=== PATIENT | male | born 1950 | race Caucasian/White ===

== ENCOUNTER 2020-04-18 05:52 | Inpatient (IN) ==
[2020-04-18] MEDS ORDERED: HEPARIN (PORCINE) 1000 UNIT/ML 10 ML (CATH LAB USE ONLY) ONE (06:16)
[2020-04-18] MEDS ORDERED: fentaNYL citrate 100 MCG/2 ML VIAL ONE ×3 (06:16→07:34)
[2020-04-18] MEDS ORDERED: NITROGLYCERIN/D5W 100MCG/ML 20ML SYR ONE (06:16)
[2020-04-18] MEDS ORDERED: MIDAZOLAM HCL 1 MG/ML 2ML VIAL ONE ×2 (06:16→07:30)
[2020-04-18] MEDS ORDERED: niCARdipine HCL INJ 2.5 MG/ML 10 ML AMP ONE (06:16)
[2020-04-18 06:27] LABS: Basophils # (auto) 0.04 K/uL (0-0.2); Basophils % (auto) 0.5 %; Eosinophils # (auto) 0.12 K/uL (0-0.5); Eosinophils % (auto) 1.5 %; Hematocrit (blood only) 35.7 % (42-52); Hemoglobin 12.2 g/dL (14.0-18.0); Immature Granulocytes # (auto) 0.02 K/uL (0.00-0.02); Immature Granulocytes % (auto) 0.2 %; Lymphocytes # (auto) 0.82 K/uL (1.2-3.4); Lymphocytes % (auto) 10.2 %; Mean Corpuscular Hemoglobin 32.5 pg (25-34); Mean Corpuscular Hgb Conc 34.2 g/dL (32-36); Mean Corpuscular Volume 95.2 fL (80-100); Mean Platelet Volume 9.5 fL (7.4-10.4); Monocytes # (auto) 0.68 K/uL (0.11-0.59); Monocytes % (auto) 8.5 %; Neutrophils # (auto) 6.36 K/uL (1.4-6.5); Neutrophils % (auto) 79.1 %; Platelet Count 282 K/uL (130-400); RDW Coefficient of Variation 12.2 % (11.5-14.5); RDW Standard Deviation 42.4 fL (36.4-46.3); Red Blood Count 3.75 M/uL (4.7-6.1); White Blood Count 8.04 K/uL (4.8-10.8)
[2020-04-18 06:30] LABS: iSTAT Creatinine 1.3 mg/dl (0.6-1.3); iSTAT Hemoglobin 12.2 g/dl (14.0-18.0); iSTAT Ionized Calcium 1.19 mmol/l (1.12-1.32); iSTAT Potassium 4.1 mmol/L (3.3-5.0)
[2020-04-18 06:44] LABS: Albumin Level 3.5 gm/dl (3.4-5.0); BUN Creatinine Ratio 13.6 (10-20); Calcium 9.3 mg/dl (8.5-10.1); Creatinine Clr Calc Pharmacy 55.4 ml/min; Est GFR (African American) 58.2; Est GFR (Non-African American) 50.2; Potassium 4.1 mmol/L (3.5-5.1)
[2020-04-18 06:45] LABS: Partial Thromboplastin Ratio 0.9; Partial Thromboplastin Time 25.5 Seconds (21.0-31.0); Prothrombin Time 10.9 Seconds (9.0-12.0)
[2020-04-18 06:54] LABS: Bilirubin,Total 0.5 mg/dl (0.2-1); Globulin 3.5 gm/dl (2.5-4.0); Troponin I 0.203 ng/ml (0-0.045)
--- NOTE | 2020-04-18 07:17 | XRay Report ---
XR chest 1V portable CLINICAL HISTORY: Atypical chest pain COMPARISON STUDY: 04/04/2020 FINDINGS: The heart is mildly enlarged. There are postsurgical changes of a midline sternotomy. There are left basilar airspace opacities. There is blunting of the left lateral costophrenic angle. Small left pleural effusion is suspected. There are minimally increased right basilar markings.[ IMPRESSION: 1. Suspected small left pleural effusion 2. Left basilar opacities, atelectasis versus pneumonia. Clinical and radiographic follow-up is recom mended ACT 112: Negative or not required by law. Electronically signed by: Jax Montoya M.D. 04/18/2020 7:15 AM
[2020-04-18] MEDS ORDERED: EPTIFIBATIDE 2 MG/ML 10 ML VIAL (CATH LAB USE ONLY) IV ONE (07:19)
--- NOTE | 2020-04-18 07:20 | Emergency Department Note ---
Impression & Plan ST elevation (STEMI) myocardial infarction ED Provider Note NAME: RAYMOND GODFREY AGE: 70 SEX: M ARRIVES VIA: Ambulance INFORMANT: Patient, EMS, the patient's ED PROVIDER(S): Claritza Aguila DO CHIEF COMPLAINT: Right-sided chest pain PLAN: Disposition: The patient went to the Pre Press Operator with Dr. Ledesma Condition: Critical MEDICAL DECISION MAKING: This is a 70-year-old male patient who is 1 week status post quadruple bypass who presents to the emergency department with sudden onset of right-sided chest pain. Prehospital EKG shows ST segment elevation in the anterior leads consistent with an acute LA. A heart alert was called. The patient was given sublingual nitro prehospital along with aspirin and treated with IV fentanyl for his pain. The patient remained hemodynamically stable and went to the cardiac Pre Press Operator with Dr. Ledesma. I kept the patient's abreast of the situation. This patient had quadruple bypass 1 week ago in [place] and had a normal postoperative course and was doing very well until 230 this morning when he awoke suddenly with right-sided chest pain that radiated into his right shoulder. Patient denies any shortness of breath but stated that the pain seemed to go into his back as well. Triage Nursing notes reviewed and agree them. Additional history obtained from EMS and the patient's Prior medical records reviewed Vital Signs: reviewed and remarkable for no significant abnormalities Differential diagnosis: STEMI; coronary vasospasm; Ciarra syndrome; aortic dissection; coronary artery dissection; PE ER treatment provided: IV fentanyl Diagnostics interpreted by me: ECG: Normal sinus rhythm at a rate of [address] segment elevation in inferior and lateral leads with some reciprocal changes in the anterior leads concerning for an acute STEMI Cardiac Monitoring: Normal sinus rhythm of 84 EKG: Junctional rhythm at a rate of [address] segment elevation in the lateral leads. There are now significant ST segment depressions in the leads V2 and V3 which are concerning for worsening ischemia. Laboratory studies: See below Imaging studies: Chest x-ray: Small left-sided pleural effusion with questionable atelectasis at the left lung base. Consultation(s): Dr. Ledesma HPI: 70/M arrives for evaluation of right-sided chest pain. The patient awoke from sleep at 2:30 AM with moderate right-sided chest pain that radiated to his right shoulder and into his back. The patient explains that he could just not get comfortable. Patient has been having some discomfort in the mid sternum of his chest from where he underwent quadruple bypass surgery 1 week ago in [place]. That pain had slowly been improving over the past 6-7 days. This was very different as he describes it. EMS gave the patient sublingual nitroglycerin, aspirin, and IV fentanyl with minimal relief of the discomfort ROS: See above HPI for pertinent positives & negatives. A total of 10 systems reviewed and were otherwise negative. PAST MEDICAL HISTORY:Coronary artery disease PAST SURGICAL HISTORY:Quadruple bypass surgery at [place] 1 week ago SOCIAL HISTORY:Patient lives with his ; he denies tobacco abuse. HOME MEDICATIONS:See list ALLERGIES:See list VITALS:See Below PHYSICAL EXAMINATION: HEENT: Head - normocephalic and atraumatic Pupils are equal, round, and reactive to light. Extraocular eye muscles are intact, and sclera are anicteric. Nose - moist nasal mucosa without discharge. Mouth - moist buccal mucosa. Oropharynx is nonerythematous and there is no tonsillar exudate or edema noted. Neck: Supple; no JVD or cervical lymphadenopathy noted Chest: Sternotomy incision appears to be well-healing. Heart: Regular rate and rhythm. There is a normal S1 and S2 with no murmurs, clicks, or gallops appreciated. Lungs: Clear to auscultation bilaterally with no wheezes, rales, or rhonchi. Abdomen: Soft, completely nontender, nondistended, with good bowel sounds. There are no palpable pulsatile masses or hepatosplenomegaly. There is no guarding, rigidity, or rebound noted. Extremities: No evidence of cyanosis, clubbing, or edema. There are easily palpable peripheral pulses. Skin: warm and dry with good turgor and no rashes. ED COURSE: Times/Reassessments: 0600: The patient was evaluated in room C9. I reviewed his previous electronic medical records. A complete history and physical was performed. A twelve-lead EKG was obtained as described above. I immediately discussed the case with Dr. Ledesma and a heart alert was called. An order was placed for continuous cardiac monitoring. The patient was in a normal sinus rhythm at a rate of 82. A second IV lock was initiated and labs were drawn as above. The patient was given 50 mcg of IV fentanyl for his pain. A portable chest x- ray was performed. The Pre Press Operator team assembled. A second dose of IV fentanyl was given for recurrent chest discomfort. A repeat EKG was obtained and showed worsening ischemic changes. I have personally spent greater than 55 minutes of critical care time in the direct management of this patient. This includes bedside care, interpretation of diagnostic studies, and testing, discussion with consultants, patient, and family members, and other required patient management activities. This 55 minutes is in excess of all separately billable procedures. Claritza Aguila, Past Med/Surg History Medical History Chest pain Substernal chest pain Family History Grandfather (Paternal) , age 58 with Parkinsons No problems noted. Grandmother (Paternal) , age 84 old age No problems noted. Grandfather (Maternal) , in his eighties No problems noted. Grandmother (Maternal) , with stroke age 65 No problems noted. Father , age 68 bacterial and viral infection No problems noted. Mother , age 91 with a stroke No problems noted. Sister No problems noted. Sister No problems noted. Son Age: 46 No problems noted. Son Age: 44 No problems noted. Son Age: 29 No problems noted. Social History Smoking Status: Former smoker Hx Alcohol Use: Yes Hx Substance Use: No Preferred Language: Iraqi Hearing Ability: Hard of Hearing Fish Bin Tender Required: No Beliefs That Will Affect Care: None marital status: Current Living Situation: Spouse current occupational status: retired Feels Safe at Home: Yes Do you think of yourself as: straight/heterosexual Sexual Activity: has been sexually active, but not for at least 12 months Allergies Allergies Allergy/AdvReac Type Severity Reaction Status Date / Time cat dander Allergy Mild hives Verified 04/18/20 06:07 Penicillins Allergy Unknown . Verified 04/18/20 06:07 Home Meds Home Medications Medication Instructions Recorded Confirmed tamsulosin 0.4 mg capsule 0.8 mg PO HS cap 03/16/20 04/18/20 atorvastatin 40 mg PO HS 04/18/20 04/18/20 furosemide 40 mg PO DAILY 04/18/20 04/18/20 oxycodone 5 mg PO Q4 PRN 04/18/20 04/18/20 potassium chloride 20 meq PO DAILY 04/18/20 04/18/20 tramadol 50 mg PO Q6 PRN 04/18/20 04/18/20 Previous Rx's Medication Instructions Recorded aspirin 81 mg PO QAM #30 tab 04/04/20 metoprolol tartrate 25 mg PO BID #60 tab 04/04/20 nitroglycerin [Nitrostat] 0.4 mg SUBLINGUAL PRN #25 tab 04/04/20 Results & Data (ED) Vital Signs Vital Signs - 24 hr 04/18/20 06:00 04/18/20 06:01 04/18/20 06:09 Temperature 36.8 C Temperature Source Oral Pulse Rate 93 H 96 H 88 Pulse Rate from SpO2 Sensor 90 94 H Respiratory Rate 20 15 18 Respiratory Effort / Characteristics Non-Labored Spontaneous Respiratory Depth Normal Blood Pressure 145/83 H 150/68 H Blood Pressure Mean 110 95 Pulse Oximetry 91 92 93 Oxygen Delivery Method Room Air Room Air Room Air Oxygen Flow Rate Sepsis New/Unexplained Change in Mental Status N/A Sepsis Action Taken by Nursing No Action Required 04/18/20 06:13 04/18/20 06:21 04/18/20 06:22 Temperature Temperature Source Pulse Rate 92 H 86 85 Pulse Rate from SpO2 Sensor 85 85 Respiratory Rate 20 12 22 Respiratory Effort / Characteristics Respiratory Depth Blood Pressure 124/68 135/75 Blood Pressure Mean 82 103 Pulse Oximetry 96 96 98 Oxygen Delivery Method Nasal Cannula Nasal Cannula Nasal Cannula Oxygen Flow Rate 2 2 3 Sepsis New/Unexplained Change in Mental Status Sepsis Action Taken by Nursing 04/18/20 06:25 04/18/20 06:26 04/18/20 06:30 Temperature Temperature Source Pulse Rate 88 83 88 Pulse Rate from SpO2 Sensor 87 84 88 Respiratory Rate 18 13 19 Respiratory Effort / Characteristics Respiratory Depth Blood Pressure 115/49 L 132/61 Blood Pressure Mean 69 83 Pulse Oximetry 96 98 97 Oxygen Delivery Method Nasal Cannula Nasal Cannula Nasal Cannula Oxygen Flow Rate 3 3 3 Sepsis New/Unexplained Change in Mental Status Sepsis Action Taken by Nursing 04/18/20 06:31 04/18/20 06:35 04/18/20 06:40 Temperature Temperature Source Pulse Rate 83 81 82 Pulse Rate from SpO2 Sensor 81 Respiratory Rate 15 15 16 Respiratory Effort / Characteristics Respiratory Depth Blood Pressure Blood Pressure Mean Pulse Oximetry 97 97 98 Oxygen Delivery Method Nasal Cannula Nasal Cannula Nasal Cannula Oxygen Flow Rate 3 Sepsis New/Unexplained Change in Mental Status Sepsis Action Taken by Nursing 04/18/20 06:41 04/18/20 06:43 04/18/20 06:44 Temperature Temperature Source Pulse Rate 84 81 84 Pulse Rate from SpO2 Sensor 82 84 Respiratory Rate 17 22 17 Respiratory Effort / Characteristics Respiratory Depth Blood Pressure 124/63 142/71 H Blood Pressure Mean 82 88 Pulse Oximetry 97 97 98 Oxygen Delivery Method Nasal Cannula Nasal Cannula Nasal Cannula Oxygen Flow Rate 3 3 3 Sepsis New/Unexplained Change in Mental Status Sepsis Action Taken by Nursing 04/18/20 06:45 04/18/20 06:46 Temperature Temperature Source Pulse Rate 86 82 Pulse Rate from SpO2 Sensor 85 82 Respiratory Rate 18 15 Respiratory Effort / Characteristics Respiratory Depth Blood Pressure 126/60 Blood Pressure Mean 73 Pulse Oximetry 97 98 Oxygen Delivery Method Nasal Cannula Nasal Cannula Oxygen Flow Rate 3 3 Sepsis New/Unexplained Change in Mental Status Sepsis Action Taken by Nursing Laboratory Data Result diagrams: 04/18/20 06:10 04/18/20 06:10 Lab Results 04/18/20 04/18/20 04/18/20 Range/Units 06:10 06:10 06:10 WBC 8.04 (4.8-10.8) K/uL RBC 3.75 L (4.7-6.1) M/uL Hgb 12.2 L (14.0-18.0) g/dL POC Hgb (14.0-18.0) g/dl Hct 35.7 L (42-52) % POC Hct (42-52) % MCV 95.2 (80-100) fL MCH 32.5 (25-34) pg MCHC 34.2 (32-36) g/dL RDW Std Deviation 42.4 (36.4-46.3) fL RDW Coeff of Cathie 12.2 (11.5-14.5) % Plt Count 282 (130-400) K/uL MPV 9.5 (7.4-10.4) fL Immature Gran % (Auto) 0.2 % Neut % (Auto) 79.1 % Lymph % (Auto) 10.2 % Dyer % (Auto) 8.5 % Eos % (Auto) 1.5 % Baso % (Auto) 0.5 % Neut # (Auto) 6.36 (1.4-6.5) K/uL Lymph # (Auto) 0.82 L (1.2-3.4) K/uL Dyer # (Auto) 0.68 H (0.11-0.59) K/uL Eos # (Auto) 0.12 (0-0.5) K/uL Baso # (Auto) 0.04 (0-0.2) K/uL Immature Gran # (Auto) 0.02 (0.00-0.02) K/uL PT 10.9 (9.0-12.0) Seconds INR 1.0 (0.9-1.1) APTT 25.5 (21.0-31.0) Seconds PTT Ratio 0.9 POC Sodium (135-144) mmol/L Sodium 138 (136-145) mmol/L POC Potassium (3.3-5.0) mmol/L Potassium 4.1 (3.5-5.1) mmol/L POC Chloride (101-112) mmol/L Chloride 105 (98-107) mmol/L Carbon Dioxide 26 (21-32) mmol/L POC Total CO2 (24-31) mmol/L Anion Gap 7.0 (3-11) POC Anion Gap (16-25) mmol/L POC BUN (7-18) mg/dl BUN 19 H (7-18) mg/dl Creatinine 1.40 (0.6-1.4) mg/dl POC Creatinine (0.6-1.3) mg/dl Est Cr Clr Drug Dosing 55.4 ml/min Est GFR ( Amer) 58.2 Est GFR (Non-Af Amer) 50.2 BUN/Creatinine Ratio 13.6 (10-20) Glucose 148 H (70-99) mg/dl POC Glucose (other) (70-99) mg/dl Calcium 9.3 (8.5-10.1) mg/dl POC Ioniz Calcium Zafar (1.12-1.32) mmol/l Total Bilirubin 0.5 (0.2-1) mg/dl AST 23 (15-37) U/L ALT 37 (12-78) U/L Alkaline Phosphatase 61 (45-117) U/L Troponin I 0.203 H* (0-0.045) ng/ml Total Protein 7.0 (6.4-8.2) gm/dl Albumin 3.5 (3.4-5.0) gm/dl Globulin 3.5 (2.5-4.0) gm/dl Albumin/Globulin Ratio 1.0 (0.9-2) Lipase 98 (73-393) U/L COVID-19 Eval Order SARS-CoV-2, RNA, NAAT (NEGATIVE) 04/18/20 04/18/20 04/18/20 Range/Units 06:10 06:10 06:17 WBC (4.8-10.8) K/uL RBC (4.7-6.1) M/uL Hgb (14.0-18.0) g/dL POC Hgb 12.2 L (14.0-18.0) g/dl Hct (42-52) % POC Hct 36 L (42-52) % MCV (80-100) fL MCH (25-34) pg MCHC (32-36) g/dL RDW Std Deviation (36.4-46.3) fL RDW Coeff of Cathie (11.5-14.5) % Plt Count (130-400) K/uL MPV (7.4-10.4) fL Immature Gran % (Auto) % Neut % (Auto) % Lymph % (Auto) % Dyer % (Auto) % Eos % (Auto) % Baso % (Auto) % Neut # (Auto) (1.4-6.5) K/uL Lymph # (Auto) (1.2-3.4) K/uL Dyer # (Auto) (0.11-0.59) K/uL Eos # (Auto) (0-0.5) K/uL Baso # (Auto) (0-0.2) K/uL Immature Gran # (Auto) (0.00-0.02) K/uL PT (9.0-12.0) Seconds INR (0.9-1.1) APTT (21.0-31.0) Seconds PTT Ratio POC Sodium 135 (135-144) mmol/L Sodium (136-145) mmol/L POC Potassium 4.1 (3.3-5.0) mmol/L Potassium (3.5-5.1) mmol/L POC Chloride 102 (101-112) mmol/L Chloride (98-107) mmol/L Carbon Dioxide (21-32) mmol/L POC Total CO2 24 (24-31) mmol/L Anion Gap (3-11) POC Anion Gap 14.0 L (16-25) mmol/L POC BUN 19 H (7-18) mg/dl BUN (7-18) mg/dl Creatinine (0.6-1.4) mg/dl POC Creatinine 1.3 (0.6-1.3) mg/dl Est Cr Clr Drug Dosing ml/min Est GFR ( Amer) Est GFR (Non-Af Amer) BUN/Creatinine Ratio (10-20) Glucose (70-99) mg/dl POC Glucose (other) 155 H (70-99) mg/dl Calcium (8.5-10.1) mg/dl POC Ioniz Calcium Zafar 1.19 (1.12-1.32) mmol/l Total Bilirubin (0.2-1) mg/dl AST (15-37) U/L ALT (12-78) U/L Alkaline Phosphatase (45-117) U/L Troponin I (0-0.045) ng/ml Total Protein (6.4-8.2) gm/dl Albumin (3.4-5.0) gm/dl Globulin (2.5-4.0) gm/dl Albumin/Globulin Ratio (0.9-2) Lipase (73-393) U/L COVID-19 Eval Order Covid19 [email or web address] SARS-CoV-2, RNA, NAAT NEGATIVE (NEGATIVE) Administered Medications Discontinued Medications Fentanyl Citrate (Fentanyl Citrate 100 Mcg/2 Ml Vial) Confirm Administered Dose 100 mcg .ROUTE .STK-MED ONE Stop: 04/18/20 06:17 Last Increment: 04/18/20 06:34 Dose: 50 mcg Documented by: [id number] Increment: 04/18/20 06:24 Dose: 50 mcg Documented by: [id number] Discharge Plan Visit Data Chief Complaint: Chest Pain Stated Complaint: CHEST PAIN ED Provider: Claritza Aguila Discharge Problem: ST elevation (STEMI) myocardial infarction Discharge Instructions Interventions: ED Discharge Assessment Last Done: 04/18/20 06:51 Discharge Problem: ST elevation (STEMI) myocardial infarction Qualifiers: Involved coronary artery: unspecified coronary artery Qualified Code(s): I21.3 - ST elevation (STEMI) myocardial infarction of unspecified site
[2020-04-18] MEDS ORDERED: EPTIFIBATIDE 0.75 MG/ML 75MG VIAL (CATH LAB USE ONLY) ONE ×2 (07:24→07:25)
[2020-04-18] MEDS ORDERED: CLOPIDOGREL BISULFATE 300 MG TAB ONE (08:12)
[2020-04-18] MEDS ORDERED: ONDANSETRON INJ 2 MG/ML 2 ML VIAL IV PRN (08:25)
[2020-04-18] MEDS ORDERED: NITROGLYCERIN SL 0.4 MG/TAB TAB SL PRN (08:25)
[2020-04-18] MEDS ORDERED: ICU PROTOCOL FOR HYPERGLYCEMIA PRN (08:25)
[2020-04-18] MEDS ORDERED: ACETAMINOPHEN 325 MG TAB PO PRN (08:25)
[2020-04-18] MEDS ORDERED: EPTIFIBATIDE BOLUS/DRIP IV STA (08:25)
[2020-04-18] MEDS ORDERED: SODIUM CHLORIDE 0.9% 1000ML 1,000 ML IV SCH (08:30)
[2020-04-18] MEDS ORDERED: EPTIFIBATIDE 75 MG/100 ML VIAL IV SCH (08:30)
--- NOTE | 2020-04-18 09:49 | History & Physical Report ---
Date of Service April 18, 2020 Assessment & Plan (1) ST elevation (STEMI) myocardial infarction: Cardiac cath revealed thrombus in the SVG at the diagonal - successfully cleared and XOCHITL placed by interventional cardiology. Pt reports currently feeling significantly improved. - Further management per cardiology team. (2) Type 2 diabetes mellitus: Pt reports diet-controlled - not on oral medications or insulin although was on SSI coverage post-operatively last week. 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 Outpatient meds continued except for furosemide and potassium - will reassess fluid status in AM - Follow labs Pt seen and reviewed with attending physician, Dr. Acharya. Plan of care discussed and as outlined above. Lore Umana PA-C Admission and Anticipated Discharge Date Admission Date: April 18, 2020 History of Present Illness Chief Complaint: Chest pain Primary Care Provider: Melvin Pickard MD This is a 70 y/o male with a PMH of CAD s/p CABG x 4 (04/11/20), aortic stenosis s/p AVR (04/11/20), DM2, HTN, dyslipidemia, BPH, bilateral carotid artery stenosis, and prostate cancer who presented to the ED early this morning with chest pain, was found to have a STEMI, and sent urgent to cardiac cath where he was found to have stenosis of the graft at the junction of the diagonal that was subsequently cleared and stented with a XOCHITL. Pt reports that he was doing well at home since discharge and felt like he was gradually improving a little each day. He noted some chest pain related to incision, especially with coughing or specific movements, but it was always substernal in location. However, this morning around 3:30 am he woke up with significant right-sided chest pain that is different from what he had been experiencing. When the pain did not quickly resolve, he became concerned and called EMS. In transport, he was noted to have ST segment elevation in the anterior leads with subsequent EKG in the ED showing potential progression of ischemia. Heart alert was called and patient was sent to cardiac cath as discussed. Currently, pt is seen in the ICU. He reports that the previous CP that brought him to the hospital has resolved, and the substernal CP from recent surgery is minimal. He denies pain at the groin site. His main complaint at present is shortness of breath related to lying flat after cath. Otherwise he is feeling well. Allergies Allergy/AdvReac Type Severity Reaction Status Date / Time cat dander Allergy Mild hives Verified 04/18/20 06:07 Penicillins Allergy Unknown . Verified 04/18/20 06:07 Home Medications Medication Instructions Recorded Confirmed Type tamsulosin 0.4 mg capsule 0.8 mg PO HS cap 03/16/20 04/18/20 History aspirin 81 mg PO QAM #30 tab 04/04/20 04/18/20 Rx metoprolol tartrate 25 mg PO BID #60 tab 04/04/20 04/18/20 Rx nitroglycerin [Nitrostat] 0.4 mg SUBLINGUAL PRN #25 tab 04/04/20 04/18/20 Rx atorvastatin 40 mg PO HS 04/18/20 04/18/20 History furosemide 40 mg PO DAILY 04/18/20 04/18/20 History oxycodone 5 mg PO Q4 PRN 04/18/20 04/18/20 History potassium chloride 20 meq PO DAILY 04/18/20 04/18/20 History tramadol 50 mg PO Q6 PRN 04/18/20 04/18/20 History Past Med/Surg History Medical History Aortic stenosis, moderate Bilateral carotid artery stenosis BPH with obstruction/lower urinary tract symptoms CAD (coronary artery disease) Chest pain Dyslipidemia Hereditary hemochromatosis History of nonmelanoma skin cancer History of patellar fracture HTN (hypertension) Substernal chest pain Type 2 diabetes mellitus Surgical History History of Mohs micrographic surgery for skin cancer BCC - 2017 History of vasectomy S/P AVR (aortic valve replacement) S/P CABG x 4 Family History Grandfather (Paternal) , age 58 with Parkinsons No problems noted. Grandmother (Paternal) , age 84 old age No problems noted. Grandfather (Maternal) , in his eighties No problems noted. Grandmother (Maternal) , with stroke age 65 No problems noted. Father , age 68 bacterial and viral infection No problems noted. Mother , age 91 with a stroke No problems noted. Sister No problems noted. Sister No problems noted. Son Age: 46 No problems noted. Son Age: 44 No problems noted. Son Age: 29 No problems noted. Social History Smoking Status: Current some day smoker Second Hand Exposure: No; Do You Dip or Chew Tobacco: No; Tobacco Cessation Education Requested by Patient: No Hx Alcohol Use: Yes Alcohol type: beer Hx Substance Use: No Preferred Language: Danish Communication Ability: Effective Hearing Ability: Hard of Hearing Software Tools Build Engineer Required: No Beliefs That Will Affect Care: None marital status: Current Living Situation: Spouse current occupational status: retired Other Information That Helps Us Care for You: No Feels Safe at Home: Yes Safety Concerns: Feels Safe At This Time Do you think of yourself as: straight/heterosexual Sexual Activity: has been sexually active, but not for at least 12 months Assistive Devices: Glasses Review of Systems Review of Systems: All systems reviewed & are unremarkable except as noted in HPI & below Constitutional: no fever, no chills and no sweats Eyes: no diplopia Ear, Nose, Mouth, Throat: no nasal congestion, no nasal discharge and no sore throat Respiratory: as per Subjective / HPI, + cough (mild since surgery - not worsening) and + dyspnea; no hemoptysis and no wheezing Cardiovascular: as per Subjective / HPI and + edema (mild LLE edema since vein harvest for CABG - also improving); no palpitations, no lightheadedness and no syncope Gastrointestinal: no abdominal pain, no nausea, no vomiting and no diarrhea/loose stools Genitourinary: + difficulty urinating (chronic issue - controlled with Flomax); no dysuria and no hematuria Musculoskeletal: no back pain, no neck pain and no muscle weakness Integumentary: no rash Neurologic: no localized weakness, no paresthesia, no seizure-like activity and no headache(s) Physical Exam Constitutional: WD/WN, vitals as above Eyes: + anicteric sclerae Neck: trachea midline Respiratory: no respiratory distress and no labored breathing Auscultation: lungs clear to auscultation bilaterally; no rales, no rhonchi and no wheezes Cardiovascular: Rate/Rhythm: regular rate and regular rhythm Vessels: dorsalis pedis pulses present Extremities: no pedal edema Gastrointestinal (Abdomen): Inspection/Auscultation: normal bowel sounds; abdomen not distended Percussion/Palpation: abdomen soft; abdomen nontender Musculoskeletal: Head/Neck/Chest: normocephalic and head atraumatic Skin: no rashes, warm and dry sternal incision healing well without erythema, warmth or drainage. Surrounding ecchymosis fading. Neurologic: moves all extremities; not confused Speech / Cognition: normal speech Psychiatric: A+Ox3, euthymic affect Results & Data Results & Data ([facility]) Vital Signs (Past 12 Hours) Vital Signs Temp Pulse Pulse Resp BP BP Pulse Ox 04/18/20 09:04 76 18 140/69 94 04/18/20 08:50 66 18 146/66 H 95 04/18/20 08:35 72 18 140/58 L 93 04/18/20 08:20 85 18 113/91 95 04/18/20 06:46 82 15 98 04/18/20 06:45 86 18 126/60 97 04/18/20 06:44 84 17 98 04/18/20 06:43 81 22 142/71 H 97 04/18/20 06:41 84 17 124/63 97 04/18/20 06:40 82 16 98 04/18/20 06:35 81 15 97 04/18/20 06:31 83 15 97 04/18/20 06:30 88 19 132/61 97 04/18/20 06:26 83 13 98 04/18/20 06:25 88 18 115/49 L 96 04/18/20 06:22 85 22 98 04/18/20 06:21 86 12 135/75 96 04/18/20 06:13 92 H 20 124/68 96 04/18/20 06:09 36.8 C 88 18 150/68 H 93 04/18/20 06:01 96 H 15 92 04/18/20 06:00 93 H 20 145/83 H 91 Laboratory Results Laboratory Results - last 24 hr 04/18/20 04/18/20 04/18/20 06:10 06:10 06:10 WBC 8.04 RBC 3.75 L Hgb 12.2 L POC Hgb Hct 35.7 L POC Hct MCV 95.2 MCH 32.5 MCHC 34.2 RDW Std Deviation 42.4 RDW Coeff of Cathie 12.2 Plt Count 282 MPV 9.5 Immature Gran % (Auto) 0.2 Neut % (Auto) 79.1 Lymph % (Auto) 10.2 Wilkinson % (Auto) 8.5 Eos % (Auto) 1.5 Baso % (Auto) 0.5 Neut # (Auto) 6.36 Lymph # (Auto) 0.82 L Wilkinson # (Auto) 0.68 H Eos # (Auto) 0.12 Baso # (Auto) 0.04 Immature Gran # (Auto) 0.02 PT 10.9 INR 1.0 APTT 25.5 PTT Ratio 0.9 Activ Coag Time Kaolin POC Sodium Sodium 138 POC Potassium Potassium 4.1 POC Chloride Chloride 105 Carbon Dioxide 26 POC Total CO2 Anion Gap 7.0 POC Anion Gap POC BUN BUN 19 H Creatinine 1.40 POC Creatinine Est Cr Clr Drug Dosing 55.4 Est GFR ( Amer) 58.2 Est GFR (Non-Af Amer) 50.2 BUN/Creatinine Ratio 13.6 Glucose 148 H POC Glucose (other) Calcium 9.3 POC Ioniz Calcium Zafar Total Bilirubin 0.5 AST 23 ALT 37 Alkaline Phosphatase 61 Troponin I 0.203 H* Total Protein 7.0 Albumin 3.5 Globulin 3.5 Albumin/Globulin Ratio 1.0 Lipase 98 Nasal Screen MRSA (PCR) COVID-19 Eval Order SARS-CoV-2, RNA, NAAT 04/18/20 04/18/20 04/18/20 06:10 06:10 06:17 WBC RBC Hgb POC Hgb 12.2 L Hct POC Hct 36 L MCV MCH MCHC RDW Std Deviation RDW Coeff of Cathie Plt Count MPV Immature Gran % (Auto) Neut % (Auto) Lymph % (Auto) Wilkinson % (Auto) Eos % (Auto) Baso % (Auto) Neut # (Auto) Lymph # (Auto) Wilkinson # (Auto) Eos # (Auto) Baso # (Auto) Immature Gran # (Auto) PT INR APTT PTT Ratio Activ Coag Time Kaolin POC Sodium 135 Sodium POC Potassium 4.1 Potassium POC Chloride 102 Chloride Carbon Dioxide POC Total CO2 24 Anion Gap POC Anion Gap 14.0 L POC BUN 19 H BUN Creatinine POC Creatinine 1.3 Est Cr Clr Drug Dosing Est GFR ( Amer) Est GFR (Non-Af Amer) BUN/Creatinine Ratio Glucose POC Glucose (other) 155 H Calcium POC Ioniz Calcium Zafar 1.19 Total Bilirubin AST ALT Alkaline Phosphatase Troponin I Total Protein Albumin Globulin Albumin/Globulin Ratio Lipase Nasal Screen MRSA (PCR) COVID-19 Eval Order Covid19 [facility] SARS-CoV-2, RNA, NAAT NEGATIVE 04/18/20 04/18/20 07:53 09:20 WBC RBC Hgb POC Hgb Hct POC Hct MCV MCH MCHC RDW Std Deviation RDW Coeff of Cathie Plt Count MPV Immature Gran % (Auto) Neut % (Auto) Lymph % (Auto) Wilkinson % (Auto) Eos % (Auto) Baso % (Auto) Neut # (Auto) Lymph # (Auto) Wilkinson # (Auto) Eos # (Auto) Baso # (Auto) Immature Gran # (Auto) PT INR APTT PTT Ratio Activ Coag Time Kaolin 213 H POC Sodium Sodium POC Potassium Potassium POC Chloride Chloride Carbon Dioxide POC Total CO2 Anion Gap POC Anion Gap POC BUN BUN Creatinine POC Creatinine Est Cr Clr Drug Dosing Est GFR ( Amer) Est GFR (Non-Af Amer) BUN/Creatinine Ratio Glucose POC Glucose (other) Calcium POC Ioniz Calcium Zafar Total Bilirubin AST ALT Alkaline Phosphatase Troponin I Total Protein Albumin Globulin Albumin/Globulin Ratio Lipase Nasal Screen MRSA (PCR) Pending COVID-19 Eval Order SARS-CoV-2, RNA, NAAT Diagnostic Findings Chest X-ray 04/18/20 - IMPRESSION: 1. Suspected small left pleural effusion. 2. Left basilar opacities, atelectasis versus pneumonia. Clinical and radiographic follow-up is recommended Medications Administered Aspirin (Aspirin 81 Mg Ectab) 81 mg PO [facility] Stop: 05/18/20 09:59 Last Admin: 04/18/20 10:28 Dose: 81 mg Documented by: [id number] Atorvastatin Calcium (Atorvastatin 40 Mg Tab) 40 mg PO [facility] Stop: 05/18/20 08:59 Last Admin: 04/18/20 10:28 Dose: 40 mg Documented by: [id number] Clopidogrel Bisulfate (Clopidogrel Bisulfate 75 Mg Tab) 75 mg PO [facility] Stop: 05/18/20 09:59 Last Admin: 04/18/20 10:28 Dose: 75 mg Documented by: [id number] Sodium Chloride (Nss 1000ml) 750 mls @ 100 mls/hr IV .Q7H30M [facility] Stop: 04/18/20 15:59 Last Admin: 04/18/20 09:39 Dose: 100 mls/hr Documented by: [id number] Eptifibatide (Integrilin) 75 mg in 100 mls @ 15.936 mls/hr IV .Q6H17M [facility]; Protocol Stop: 04/18/20 13:00 Last Admin: 04/18/20 09:39 Dose: 2 mcg/kg/min, 15.9 mls/hr Documented by: [id number] Cosigned by: [id number] Metoprolol Tartrate (Metoprolol Tartrate 25 Mg Tab) 25 mg PO BID [facility] Stop: 05/18/20 09:59 Last Admin: 04/18/20 10:28 Dose: 25 mg Documented by: [id number] Discontinued Medications Clopidogrel Bisulfate (Clopidogrel Bisulfate 300 Mg Tab) Confirm Administered Dose 600 mg .ROUTE .STK-MED ONE Stop: 04/18/20 08:13 Last Admin: 04/18/20 08:26 Dose: 600 mg Documented by: [id number] Eptifibatide (Eptifibatide 2 Mg/Ml 10 Ml Vial (Pig Sticker Use Only)) Confirm Administered Dose 40 mg IV .STK-MED ONE Stop: 04/18/20 07:20 Last Admin: 04/18/20 07:59 Dose: 18 ml Documented by: [id number] Eptifibatide (Eptifibatide 0.75 Mg/Ml 75mg Vial (Pig Sticker Use Only)) Confirm Administered Dose 75 mg .ROUTE .STK-MED ONE Stop: 04/18/20 07:25 Last Admin: 04/18/20 07:59 Dose: 75 mg Documented by: [id number] Eptifibatide (Eptifibatide 0.75 Mg/Ml 75mg Vial (Pig Sticker Use Only)) Confirm Administered Dose 75 mg .ROUTE .STK-MED ONE Stop: 04/18/20 07:26 Last Admin: 04/18/20 08:00 Dose: Not Given Documented by: [id number] Fentanyl Citrate (Fentanyl Citrate 100 Mcg/2 Ml Vial) Confirm Administered Dose 100 mcg .ROUTE .STK-MED ONE Stop: 04/18/20 06:17 Last Admin: 04/18/20 08:00 Dose: 100 mcg Documented by: [id number] Fentanyl Citrate (Fentanyl Citrate 100 Mcg/2 Ml Vial) Confirm Administered Dose 100 mcg .ROUTE .STK-MED ONE Stop: 04/18/20 06:17 Last Increment: 04/18/20 06:34 Dose: 50 mcg Documented by: [id number] Increment: 04/18/20 06:24 Dose: 50 mcg Documented by: [id number] Fentanyl Citrate (Fentanyl Citrate 100 Mcg/2 Ml Vial) Confirm Administered Dose 100 mcg .ROUTE .[facility]-MED ONE Stop: 04/18/20 07:35 Last Admin: 04/18/20 08:09 Dose: Not Given Documented by: [id number] Heparin Sodium (Porcine) (Heparin (Porcine) 1000 Unit/Ml 10 Ml (Pig Sticker Use Only)) Confirm Administered Dose 10,000 units .ROUTE .[facility] ONE Stop: 04/18/20 06:17 Last Admin: 04/18/20 07:58 Dose: 8,000 units Documented by: [id number] Heparin Sodium/Sodium Chloride (Heparin In Nss Infusion 1000 Unit/500 Ml (2 U/Ml) Bag) Confirm Administered Dose 3,000 units IV .[facility] ONE Stop: 04/18/20 06:17 Last Admin: 04/18/20 07:58 Dose: 3,000 units Documented by: [id number] Midazolam HCl (Midazolam Hcl 1 Mg/Ml 2ml Vial) Confirm Administered Dose 2 mg .ROUTE .[facility]-MED ONE Stop: 04/18/20 06:17 Last Admin: 04/18/20 07:59 Dose: 2 mg Documented by: [id number] Midazolam HCl (Midazolam Hcl 1 Mg/Ml 2ml Vial) Confirm Administered Dose 2 mg .ROUTE .[facility]-MED ONE Stop: 04/18/20 07:31 Last Increment: 04/18/20 08:09 Dose: 1 mg Documented by: [id number] Nicardipine HCl (Nicardipine Hcl Inj 2.5 Mg/Ml 10 Ml Amp) Confirm Administered Dose 25 mg .ROUTE .[facility]-MED ONE Stop: 04/18/20 06:17 Last Admin: 04/18/20 07:58 Dose: 25 mg Documented by: [id number] Nitroglycerin/Dextrose (Nitroglycerin/D5w 100mcg/Ml 20ml Syr) Confirm Administered Dose 2,000 mcg .ROUTE .[facility]-MED ONE Stop: 04/18/20 06:17 Last Admin: 04/18/20 07:58 Dose: 2,000 mcg Documented by: [id number] Code Status & VTE Plan VTE Prophylaxis Plan VTE Prophylaxis will be ordered: Yes Supervising Physician Co-Signing Physician Notes Pt seen and examined by me, care coordinated with Lore Umana PA-C, pls refer to her note above for further detail. Pt is a 70 y/o male with CAD s/p bioprosthetic valve and coronary artery bypass surgery x4 with a SHANKS to the LAD, a saphenous vein graft to the PDA and right posterior lateral, a saphenous vein graft to the diagonal branch. The patient did well after surgery. However woke up with chest pain and was diagnosed w/STEMI in ED. He was taken emergently to the cardiac catheterization lab and is s/p stent in the saphenous vein graft to the diagonal at the anastomotic site. He was admitted to the ICU after his procedure. Currently pt is laying in bed in NAD. He does report some mild shortness of breath, states that usually he lays/sleeps with head of the bed elevated. He is speaking in full sentences and oxygenating well on room air. No pain, edema, ecchymosis at the cath site (right groin). Heart sounds regular, lung sounds generally clear to auscultation w/o any wheezing. abdomen soft, nontender, nondistended. Pt moves extremities spontaneously. Some left LE ecchymosis noted (post procedure). Moves extremities spontaneously, no sign. LE noted. Skin is warm, dry. Pt now admitted to ICU, cardiology consulted, integrilin infusion for now, dual antiplatelet therapy for at least 1 year, cont. statin. Tati Acharya MD (1) Type 2 diabetes mellitus Diabetes mellitus complication status: without complication Diabetes mellitus licensed practical nurse insulin use: without licensed practical nurse use Qualified Code(s): E11.9 - Type 2 diabetes mellitus without complications (2) ST elevation (STEMI) myocardial infarction Involved coronary artery: unspecified coronary artery Qualified Code(s): I21.3 - ST elevation (STEMI) myocardial infarction of unspecified site (3) HTN (hypertension) Hypertension type: essential hypertension Qualified Code(s): I10 - Essential (primary) hypertension
[2020-04-18] MEDS: ATORVASTATIN 40 MG TAB PO SCH (10:28)
[2020-04-18] MEDS: CLOPIDOGREL BISULFATE 75 MG TAB PO SCH (10:28)
[2020-04-18] MEDS: ASPIRIN 81 MG ECTAB PO SCH (10:28)
[2020-04-18] MEDS: METOPROLOL TARTRATE 25 MG TAB PO SCH ×2 (10:28→20:00)
--- NOTE | 2020-04-18 11:00 | Critical Care Consultation ---
Date of Consultation April 18, 2020 Assessment & Plan (1) ST elevation (STEMI) myocardial infarction: Impression: 70-year-old male with history of CABG 7 days ago presenting now with acute graft stenosis requiring drug-eluting stent placement. He is currently on Integrilin and is pain-free. Recommendations: 1. Acute coronary syndrome: Management per cardiology. Will defer anticoagul ants to them. 2. Mild anemia: No indication for transfusion currently. Continue to follow. 3. Coronary disease: Patient's outpatient medications will be continued. 4. Patient's remaining medical issues have been addressed by the admitting hospitalist. Feel free to contact us if we can be of additional assistance. Disposition per hospitalist and cardiology. History of Present Illness Attending Physician: Manish Acharya MD History of Present Illness Asked by hospitalist to assist in management of this patient status post stent placement. History is obtained from review the electronic medical record and discussion with the patient. The patient is a 70-year-old male who underwent four-vessel CABG and AVR April 11 at [facility]. He was home rehabbing doing well when he woke up at 2:00 this morning complaining of chest discomfort. He took his oxycodone which had no impact on his chest pain and was brought to the emergency room. He was found to have ST elevation myocardial infarction and was taken to the Magnetometer Operator where he was identified to have acute graft occlusion. A drug-eluting stent was placed and he was admitted to the ICU post procedurally. He is currently awake alert. He denies any chest pain. No shortness of breath. No fevers chills or night sweats. Allergies Allergy/AdvReac Type Severity Reaction Status Date / Time cat dander Allergy Mild hives Verified 04/18/20 06:07 Penicillins Allergy Unknown . Verified 04/18/20 06:07 Home Medications Medication Instructions Recorded Confirmed Type tamsulosin 0.4 mg capsule 0.8 mg PO HS cap 03/16/20 04/18/20 History aspirin 81 mg PO QAM #30 tab 04/04/20 04/18/20 Rx metoprolol tartrate 25 mg PO BID #60 tab 04/04/20 04/18/20 Rx nitroglycerin [Nitrostat] 0.4 mg SUBLINGUAL PRN #25 tab 04/04/20 04/18/20 Rx atorvastatin 40 mg PO HS 04/18/20 04/18/20 History furosemide 40 mg PO DAILY 04/18/20 04/18/20 History oxycodone 5 mg PO Q4 PRN 04/18/20 04/18/20 History potassium chloride 20 meq PO DAILY 04/18/20 04/18/20 History tramadol 50 mg PO Q6 PRN 04/18/20 04/18/20 History Patient History Medical History (Updated 04/18/20 @ 09:22 by Edna Umana PA-C) Aortic stenosis, moderate Bilateral carotid artery stenosis BPH with obstruction/lower urinary tract symptoms CAD (coronary artery disease) Chest pain Dyslipidemia Hereditary hemochromatosis History of nonmelanoma skin cancer History of patellar fracture HTN (hypertension) Substernal chest pain Type 2 diabetes mellitus Surgical History (Updated 04/18/20 @ 09:22 by Edna Umana PA-C) History of Mohs micrographic surgery for skin cancer BCC - 2017 History of vasectomy S/P AVR (aortic valve replacement) S/P CABG x 4 Family History Grandfather (Paternal) , age 58 with Parkinsons No problems noted. Grandmother (Paternal) , age 84 old age No problems noted. Grandfather (Maternal) , in his eighties No problems noted. Grandmother (Maternal) , with stroke age 65 No problems noted. Father , age 68 bacterial and viral infection No problems noted. Mother , age 91 with a stroke No problems noted. Sister No problems noted. Sister No problems noted. Son Age: 46 No problems noted. Son Age: 44 No problems noted. Son Age: 29 No problems noted. Social History Smoking Status: Current some day smoker Second Hand Exposure: No; Do You Dip or Chew Tobacco: No; Tobacco Cessation Education Requested by Patient: No Hx Alcohol Use: Yes Alcohol type: beer Hx Substance Use: No Preferred Language: Gabonese Communication Ability: Effective Hearing Ability: Hard of Hearing Phlebotomy Technician Required: No Beliefs That Will Affect Care: None marital status: Current Living Situation: Spouse current occupational status: retired Other Information That Helps Us Care for You: No Feels Safe at Home: Yes Safety Concerns: Feels Safe At This Time Do you think of yourself as: straight/heterosexual Sexual Activity: has been sexually active, but not for at least 12 months Assistive Devices: Glasses Review of Systems Review of Systems: Please refer to admission H&P. No additions or deletions Physical Exam Constitutional: WD/WN, vitals as above Neck: trachea midline, no thyromegaly Respiratory: normal respiratory effort, lungs clear to auscultation Cardiovascular: RRR, no murmur, no edema Gastrointestinal (Abdomen): normal bowel sounds, soft, nontender, no hepatosplenomegaly Musculoskeletal: Extremities: extremities normal to inspection Skin: no rashes, warm and dry Neurologic: Nonfocal exam Lymphatic: no cervical lymphadenopathy Results & Data Results & Data ([facility]) Vital Signs (Past 12 Hours) Vital Signs Temp Pulse Pulse Resp BP BP Pulse Ox 04/18/20 09:35 36.8 C 76 18 137/64 96 04/18/20 09:04 76 18 140/69 94 04/18/20 08:50 66 18 146/66 H 95 04/18/20 08:35 72 18 140/58 L 93 04/18/20 08:20 85 18 113/91 95 04/18/20 06:46 82 15 98 04/18/20 06:45 86 18 126/60 97 04/18/20 06:44 84 17 98 04/18/20 06:43 81 22 142/71 H 97 04/18/20 06:41 84 17 124/63 97 04/18/20 06:40 82 16 98 04/18/20 06:35 81 15 97 04/18/20 06:31 83 15 97 04/18/20 06:30 88 19 132/61 97 04/18/20 06:26 83 13 98 04/18/20 06:25 88 18 115/49 L 96 04/18/20 06:22 85 22 98 04/18/20 06:21 86 12 135/75 96 04/18/20 06:13 92 H 20 124/68 96 04/18/20 06:09 36.8 C 88 18 150/68 H 93 04/18/20 06:01 96 H 15 92 04/18/20 06:00 93 H 20 145/83 H 91 Laboratory Results 04/18/20 06:10 04/18/20 06:10 Diagnostic Findings Chest x-ray from today was independently reviewed. Patient is status post median sternotomy. There is some haziness at the left lung base possibly associated with a small effusion but otherwise lungs are well aerated. Coding Level of Care Code 08051 Inpt Consult Level [address] elevation (STEMI) myocardial infarction I21.3 Involved coronary artery: unspecified coronary artery (1) ST elevation (STEMI) myocardial infarction Involved coronary artery: unspecified coronary artery Qualified Code(s): I21.3 - ST elevation (STEMI) myocardial infarction of unspecified site
--- NOTE | 2020-04-18 12:05 | Cardiology Consultation ---
Date of Consultation April 18, 2020 Assessment & Plan (1) CAD (coronary artery disease): (2) Aortic stenosis, moderate: (3) Hereditary hemochromatosis: (4) Type 2 diabetes mellitus: (5) ST elevation (STEMI) myocardial infarction: (6) S/P AVR: (7) Hx of CABG: The patient is clinically stable. He is on an Integrilin infusion which should last until tomorrow morning. He will need to stay on dual antiplatelet therapy. Further evaluation and treatment depending on his clinical course. History of Present Illness Attending Physician: Manish Acharya MD History of Present Illness This is a 70-year-old male patient with hereditary hemochromatosis who a week ago underwent open heart surgery receiving a [place] epic bioprosthetic valve and coronary artery bypass surgery x4 with a SHANKS to the LAD, a saphenous vein graft to the PDA and right posterior lateral, a saphenous vein graft to the diagonal branch. The patient did well after surgery and was convalescing at home. Late last evening your early this morning he started to have chest discomfort that was different from his post surgical chest pain. He became concerned and came to the emergency department and he was noted to be having a STEMI. He was taken emergently to the cardiac catheterization lab and he received a stent in the saphenous vein graft to the diagonal at the anastomotic site. He was admitted to the ICU and he is doing well. He actually is sitting in a chair having lunch and states he feels well. AVR (aortic valve replacement) CAD (coronary artery disease) Nonrheumatic aortic valve stenosis Bilateral carotid artery stenosis S/P CABG x 4 Type 2 diabetes mellitus with hemoglobin A1c goal of less than 7.0% ([facility]) Hyperlipidemia HTN, goal below 140/90 Allergies Allergy/AdvReac Type Severity Reaction Status Date / Time cat dander Allergy Mild hives Verified 04/18/20 06:07 Penicillins Allergy Unknown . Verified 04/18/20 06:07 Home Medications Medication Instructions Recorded Confirmed Type tamsulosin 0.4 mg capsule 0.8 mg PO HS cap 03/16/20 04/18/20 History aspirin 81 mg PO QAM #30 tab 04/04/20 04/18/20 Rx metoprolol tartrate 25 mg PO BID #60 tab 04/04/20 04/18/20 Rx nitroglycerin [Nitrostat] 0.4 mg SUBLINGUAL PRN #25 tab 04/04/20 04/18/20 Rx atorvastatin 40 mg PO HS 04/18/20 04/18/20 History furosemide 40 mg PO DAILY 04/18/20 04/18/20 History oxycodone 5 mg PO Q4 PRN 04/18/20 04/18/20 History potassium chloride 20 meq PO DAILY 04/18/20 04/18/20 History tramadol 50 mg PO Q6 PRN 04/18/20 04/18/20 History Patient History Medical History Aortic stenosis, moderate Bilateral carotid artery stenosis BPH with obstruction/lower urinary tract symptoms CAD (coronary artery disease) Chest pain Dyslipidemia Hereditary hemochromatosis History of nonmelanoma skin cancer History of patellar fracture HTN (hypertension) Substernal chest pain Type 2 diabetes mellitus Surgical History History of Mohs micrographic surgery for skin cancer - 2016 History of vasectomy S/P AVR (aortic valve replacement) S/P CABG x 4 Family History Grandfather (Paternal) , age 58 with Parkinsons No problems noted. Grandmother (Paternal) , age 84 old age No problems noted. Grandfather (Maternal) , in his eighties No problems noted. Grandmother (Maternal) , with stroke age 65 No problems noted. Father , age 68 bacterial and viral infection No problems noted. Mother , age 91 with a stroke No problems noted. Sister No problems noted. Sister No problems noted. Son Age: 46 No problems noted. Son Age: 44 No problems noted. Son Age: 29 No problems noted. Social History Smoking Status: Current some day smoker Second Hand Exposure: No; Do You Dip or Chew Tobacco: No; Tobacco Cessation Education Requested by Patient: No Hx Alcohol Use: Yes Alcohol type: beer Hx Substance Use: No Preferred Language: Portuguese Communication Ability: Effective Hearing Ability: Hard of Hearing Graphics Manager Required: No Beliefs That Will Affect Care: None marital status: Current Living Situation: Spouse current occupational status: retired Other Information That Helps Us Care for You: No Feels Safe at Home: Yes Safety Concerns: Feels Safe At This Time Do you think of yourself as: straight/heterosexual Sexual Activity: has been sexually active, but not for at least 12 months Assistive Devices: Glasses Review of Systems Review of Systems: All systems reviewed & are unremarkable except as noted in HPI & below Nothing additional to add Physical Exam Physical Exam: General: no acute distress and stated age Head: normocephalic, no masses, lesions, tenderness or abnormalities Eyes: conjunctiva are pink and non-injected, sclera clear Neck: supple, no adenopathy, no bruits, normal jugular venous pulse, no hepatojugular reflux Chest: normal shape and normal respiratory effort Lungs: clear to auscultation and percussion Cardiac Exam: - regular rate & rhythm, no murmurs gallops or rubs - normal S1, normal S2 Pulses: 2(+) throughout Abdomen: abdomen soft, non-tender, no abnormal masses and no hepatosplenomegaly Musculoskeletal: no gait disturbance, no joint inflammation, no deforming arthritis Extremities: no edema and no cyanosis Neuro: grossly normal exam Results & Data ([facility]) Vital Signs (Past 12 Hours) Vital Signs Temp Pulse Pulse Resp BP BP Pulse Ox 04/18/20 09:35 36.8 C 76 18 137/64 96 04/18/20 09:04 76 18 140/69 94 04/18/20 08:50 66 18 146/66 H 95 04/18/20 08:35 72 18 140/58 L 93 04/18/20 08:20 85 18 113/91 95 04/18/20 06:46 82 15 98 04/18/20 06:45 86 18 126/60 97 04/18/20 06:44 84 17 98 04/18/20 06:43 81 22 142/71 H 97 04/18/20 06:41 84 17 124/63 97 04/18/20 06:40 82 16 98 04/18/20 06:35 81 15 97 04/18/20 06:31 83 15 97 04/18/20 06:30 88 19 132/61 97 04/18/20 06:26 83 13 98 04/18/20 06:25 88 18 115/49 L 96 04/18/20 06:22 85 22 98 04/18/20 06:21 86 12 135/75 96 04/18/20 06:13 92 H 20 124/68 96 04/18/20 06:09 36.8 C 88 18 150/68 H 93 04/18/20 06:01 96 H 15 92 04/18/20 06:00 93 H 20 145/83 H 91 Laboratory Results Laboratory Results - last 24 hr 04/18/20 04/18/20 04/18/20 06:10 06:10 06:10 WBC 8.04 RBC 3.75 L Hgb 12.2 L POC Hgb Hct 35.7 L POC Hct MCV 95.2 MCH 32.5 MCHC 34.2 RDW Std Deviation 42.4 RDW Coeff of Cathie 12.2 Plt Count 282 MPV 9.5 Immature Gran % (Auto) 0.2 Neut % (Auto) 79.1 Lymph % (Auto) 10.2 Crawford % (Auto) 8.5 Eos % (Auto) 1.5 Baso % (Auto) 0.5 Neut # (Auto) 6.36 Lymph # (Auto) 0.82 L Crawford # (Auto) 0.68 H Eos # (Auto) 0.12 Baso # (Auto) 0.04 Immature Gran # (Auto) 0.02 PT 10.9 INR 1.0 APTT 25.5 PTT Ratio 0.9 Activ Coag Time Kaolin POC Sodium Sodium 138 POC Potassium Potassium 4.1 POC Chloride Chloride 105 Carbon Dioxide 26 POC Total CO2 Anion Gap 7.0 POC Anion Gap POC BUN BUN 19 H Creatinine 1.40 POC Creatinine Est Cr Clr Drug Dosing 55.4 Est GFR ( Amer) 58.2 Est GFR (Non-Af Amer) 50.2 BUN/Creatinine Ratio 13.6 Glucose 148 H POC Glucose (other) Calcium 9.3 POC Ioniz Calcium Zafar Total Bilirubin 0.5 AST 23 ALT 37 Alkaline Phosphatase 61 Troponin I 0.203 H* Total Protein 7.0 Albumin 3.5 Globulin 3.5 Albumin/Globulin Ratio 1.0 Lipase 98 Nasal Screen MRSA (PCR) COVID-19 Eval Order SARS-CoV-2, RNA, NAAT 04/18/20 04/18/20 04/18/20 06:10 06:10 06:17 WBC RBC Hgb POC Hgb 12.2 L Hct POC Hct 36 L MCV MCH MCHC RDW Std Deviation RDW Coeff of Cathie Plt Count MPV Immature Gran % (Auto) Neut % (Auto) Lymph % (Auto) Crawford % (Auto) Eos % (Auto) Baso % (Auto) Neut # (Auto) Lymph # (Auto) Crawford # (Auto) Eos # (Auto) Baso # (Auto) Immature Gran # (Auto) PT INR APTT PTT Ratio Activ Coag Time Kaolin POC Sodium 135 Sodium POC Potassium 4.1 Potassium POC Chloride 102 Chloride Carbon Dioxide POC Total CO2 24 Anion Gap POC Anion Gap 14.0 L POC BUN 19 H BUN Creatinine POC Creatinine 1.3 Est Cr Clr Drug Dosing Est GFR ( Amer) Est GFR (Non-Af Amer) BUN/Creatinine Ratio Glucose POC Glucose (other) 155 H Calcium POC Ioniz Calcium Zafar 1.19 Total Bilirubin AST ALT Alkaline Phosphatase Troponin I Total Protein Albumin Globulin Albumin/Globulin Ratio Lipase Nasal Screen MRSA (PCR) COVID-19 Eval [facility] SARS-CoV-2, RNA, NAAT NEGATIVE 04/18/20 04/18/20 07:53 09:20 WBC RBC Hgb POC Hgb Hct POC Hct MCV MCH MCHC RDW Std Deviation RDW Coeff of Cathie Plt Count MPV Immature Gran % (Auto) Neut % (Auto) Lymph % (Auto) Crawford % (Auto) Eos % (Auto) Baso % (Auto) Neut # (Auto) Lymph # (Auto) Crawford # (Auto) Eos # (Auto) Baso # (Auto) Immature Gran # (Auto) PT INR APTT PTT Ratio Activ Coag Time Kaolin 213 H POC Sodium Sodium POC Potassium Potassium POC Chloride Chloride Carbon Dioxide POC Total CO2 Anion Gap POC Anion Gap POC BUN BUN Creatinine POC Creatinine Est Cr Clr Drug Dosing Est GFR ( Amer) Est GFR (Non-Af Amer) BUN/Creatinine Ratio Glucose POC Glucose (other) Calcium POC Ioniz Calcium Zafar Total Bilirubin AST ALT Alkaline Phosphatase Troponin I Total Protein Albumin Globulin Albumin/Globulin Ratio Lipase Nasal Screen MRSA (PCR) Negative COVID-19 Eval Order SARS-CoV-2, RNA, NAAT Medications Administered Current Inpatient Medications Acetaminophen (Acetaminophen 325 Mg Tab) 650 mg PO Q4H PRN PRN Reason: MILD Pain (Scale 1,2,3) Stop: 05/18/20 08:24 Aspirin (Aspirin 81 Mg Ectab) 81 mg PO QAM [facility] Stop: 05/18/20 09:59 Last Admin: 04/18/20 10:28 Dose: 81 mg Documented by: Atorvastatin Calcium (Atorvastatin 40 Mg Tab) 40 mg PO [facility] Stop: 05/18/20 08:59 Last Admin: 04/18/20 10:28 Dose: 40 mg Documented by: Clopidogrel Bisulfate (Clopidogrel Bisulfate 75 Mg Tab) [facility] Stop: 05/18/20 09:59 Last Admin: 04/18/20 10:28 Dose: 75 mg Documented by: Sodium Chloride (Nss 1000ml) 750 mls @ 100 mls/hr IV .Q7H30M [facility] Stop: 04/18/20 15:59 Last Admin: 04/18/20 09:39 Dose: 100 mls/hr Documented by: Eptifibatide (Integrilin) 75 mg in 100 mls @ 15.936 mls/hr IV .Q6H17M [facility]; Protocol Stop: 04/18/20 13:00 Last Admin: 04/18/20 09:39 Dose: 2 mcg/kg/min, 15.9 mls/hr Documented by: Metoprolol Tartrate (Metoprolol Tartrate 25 Mg Tab) 25 mg PO BID [facility] Stop: 05/18/20 09:59 Last Admin: 04/18/20 10:28 Dose: 25 mg Documented by: Miscellaneous (Icu Protocol For Hyperglycemia) 1 ea N/A PRN PRN; Protocol PRN Reason: Hyperglycemia Protocol Stop: 04/20/20 08:24 Nitroglycerin (Nitroglycerin Sl 0.4 Mg/Tab Tab) 0.4 mg SL PRN PRN PRN Reason: Chest Pain Stop: 05/18/20 08:24 Ondansetron HCl (Ondansetron Inj 2 Mg/Ml 2 Ml Vial) 4 mg IV Q6H PRN PRN Reason: Nausea And Vomiting Stop: 05/18/20 08:24 (1) ST elevation (STEMI) myocardial infarction Involved coronary artery: unspecified coronary artery Qualified Code(s): I21.3 - ST elevation (STEMI) myocardial infarction of unspecified site
--- NOTE | 2020-04-18 13:19 | Cardiac Catheterization ---
[facility] Data: Director Of Teacher Education Cardiac Status Clinical evaluation leading to the procedure CAD Presenation: Non STEMI and STEMI Anginal Classification: CCS IV Heart Failure: No Cardiogenic Shock within 24 Hours: No Cardiac Arrest within 24 Hours: No Imaging Studies Past 6 Months: Yes Stress Studies Past 6 Months: No Diagnostic Physicians Name: Lucas Ledesma MD Status: Emergency Closure Device Percutaneous Entry Location: Femoral Closure Device: Angio-Seal Recommendations: PCI without planned CABG PCI Indication: PCI for STEMI - Stable Lesion Segment Name: SVG-D1 Culprit Artery: Yes Stenosis Prior to Rx (%): 100 Chronic Total Occlusion: No IVUS: No FFR: No Pre-Procedure BAYRON Flow: 0 Previously Treated Lesion: No Lesion Complexity: High/C Lesion Length (mm): 18 Thrombus Present: Yes Bifurcation Lesion: No Guidewire Across Lesion: Stenosis Post-Procedure (%): 0 Post-Procedure BAYRON Flow: 3 Devices(s) Deployed: Yes Yes Intraprocedure Events Significant Disection: No Perforation: No Cardiac Cath Procedure Full Procedure Date April 18, 2020 Pre-Procedure Diagnosis Pre-Procedure Diagnosis: STEMI AUC Score AUC Score: 9 Post-Procedure Diagnosis Post-Procedure Diagnosis: Severe CAD and Successful PCI Procedure(s) Performed Procedure(s) Performed: Coronary Angiography, Aspiration Thrombectomy, Drug Eluting Stent, Bypass Graft Angiography and Femoral Artery Angiography Fruit Dryer Lucas Ledesma MD Telephone Plant Power Operator(s) Suresh Estimated Blood Loss Estimated Blood Loss: 15 Medication(s) Medication(s): Clopidogrel, Fentanyl, Heparin, Integrilin, Lidocaine 1%, Nicardipine, Nitroglycerin and Versed Summary of Findings Indication: Post four-vessel CABG, AVR 1 week ago at [facility]. Acute onset chest pain this morning ECG with subtle lateral ST elevations and deep anterior ST depressions. Access: 6 Fr right common femoral artery Catheters: JL4, JR4 Findings: LM -normal caliber, 40% distal LAD -diffuse proximal disease up to 80%, subtotal occlusion after second diagonal. D1 100% mid occlusion. Second diagonal with 90% proximal stenosis. Ramusmedium caliber, long 80% stenosis Circumflex -medium caliber, 40% ostial stenosis. RCA -dominant, large caliber, 30% proximal, 40% late mid. 80% ostial right PDA with competitive flow in distal vessel. Competitive flow in right PLB. SHANKS to LADwidely patent SVG to PDA and right PLB--large vein, widely patent SVG to [id number] vein 100% acute occlusion and distal segment/at anastomosis -- PCI -- Antithrombotic therapy: Heparin, Integrilin, clopidogrel Procedure: SVG to D1 cannulated with JR4 guide Tire Trimmer Hand 50 wire passed across lesion into distal vessel IC Integrilin administered for heavy graft thrombus Aspiration thrombectomy performed with export catheter After flow reestablished noted to have severe residual stenosis at anastomosis SVG to D1 anastomosis dilated with 2.0 balloon Dilated anastomosis stented with 2.25 x 15 mm Xience drug-eluting stent Stent post-dilated proximally with 3.0 noncompliant balloon IC vasodilators administered for spasm Post procedure BAYRON 3 flow in diagonal, stent well expanded with minimal residual stenosis and no apparent cardiac complications. Arterial Closure: Angio-Seal Summary: 1. Acute 100% distal SVG to D1 occlusion secondary to severe anastomotic stenosis 2. Widely patent SHANKS to LAD, SVG to PDA, RPLB 3. Chronic multivessel CAD -80% proximal LAD, 100% mid D1, 90% proximal small D2 80% proximal ramus 80% ostial right PDA 4. Successful PCI of SVG to D1 with aspiration thrombectomy and single drug-eluting stent across vein graft anastomosis (2.25 x 15 mm Xience; postdilated proximally with 3.0 NC). Recommendations: To ICU for continued monitoring Continue Integrilin for 4 hours Loaded with clopidogrel 600 mg in laboratory monitor Continue dual-antiplatelet therapy for at least 1 year Continue statin, and ASCVD risk factor modification Consult cardiac Rehab Hemodynamics Rest Ao:: 119/53/89 Final Ao: -- LV: -- Recommendations Recommendations: PCI without planned CABG Specimens Specimens: None Radiation Exposure (mGy) 3342 Contrast (mls) 110 Fluids (cc crystalloids) Fluids (cc crystalloids): 155 Drains Drains: none Anesthesia moderate Procedural Complication(s) None Disposition ICU I attest to the content of the Intraoperative Record and any orders documented therein. Any exceptions are noted below. MNP Card Cath Procedure Codes Cardiac Catheterization Procedure 1: Cardiovascular Cath Procedures: 76237 Coronaries and Grafts/IM (venous & atrial) Moderate Sedation Procedure 1: Sedation/Anesthesia: 36293 Mod Sedation by the same physician;Init15 Min Child Age 5 & Up Procedure 2: Sedation/Anesthesia: 34163 Mod Sedation by the same physician; Ea [id number] Minutes Stenting Procedure 1: Cardiovascular Stent Procedures: 35652 Perc transluminal revascularization of acute sub/total occl, aMI PG Care Time/CCT Total # of Minutes Spent Total Time Spent with Patient: Total time spent is greater than 50% in coordination of care (as documented) at patient's floor/unit and/or counseling patient:
[2020-04-18] MEDS ORDERED: oxyCODONE HCL IR 5 MG TAB (IMMEDIATE RELEASE) PO STA (19:18)
[2020-04-18] MEDS ORDERED: TAMSULOSIN HCL 0.4 MG CAP PO SCH (21:00)
--- NOTE | 2020-04-18 22:33 | Electrocardiogram Report ---
Test Reason : Blood Pressure : / mmHG Vent. Rate : 085 BPM Atrial Rate : 085 BPM P-R Int : 148 ms QRS Dur : 094 ms QT Int : 366 ms P-R-T Axes : 047 050 033 degrees QTc Int : 435 ms Normal sinus rhythm ST elevation consider lateral injury or acute infarct ACUTE SC / STEMI Abnormal ECG When compared with ECG of 04-APR-2020 09:34, ST more depressed Anterior leads ST elevation now present in Lateral leads Nonspecific T wave abnormality no longer evident in Lateral leads Confirmed by Moe Jackson ([id number]) on 04/18/2020 10:33:12 PM Referred By: REFERRED SELF Confirmed By:Moe Jackson
[2020-04-19 04:03] VITALS: TEMP 99.1
[2020-04-19 05:08] LABS: Basophils # (auto) 0.03 K/uL (0-0.2); Basophils % (auto) 0.4 %; Eosinophils # (auto) 0.13 K/uL (0-0.5); Eosinophils % (auto) 1.8 %; Hematocrit (blood only) 32.9 % (42-52); Hemoglobin 11.1 g/dL (14.0-18.0); Immature Granulocytes # (auto) 0.02 K/uL (0.00-0.02); Immature Granulocytes % (auto) 0.3 %; Lymphocytes # (auto) 0.98 K/uL (1.2-3.4); Lymphocytes % (auto) 13.5 %; Mean Corpuscular Hemoglobin 32.6 pg (25-34); Mean Corpuscular Hgb Conc 33.7 g/dL (32-36); Mean Corpuscular Volume 96.5 fL (80-100); Mean Platelet Volume 9.3 fL (7.4-10.4); Monocytes # (auto) 0.88 K/uL (0.11-0.59); Monocytes % (auto) 12.2 %; Neutrophils % (auto) 71.8 %; Platelet Count 271 K/uL (130-400); RDW Coefficient of Variation 12.3 % (11.5-14.5); RDW Standard Deviation 43.6 fL (36.4-46.3); Red Blood Count 3.41 M/uL (4.7-6.1); White Blood Count 7.24 K/uL (4.8-10.8)
[2020-04-19 05:42] LABS: BUN Creatinine Ratio 12.2 (10-20); Calcium 8.8 mg/dl (8.5-10.1); Est GFR (African American) 74.6; Est GFR (Non-African American) 64.3; Magnesium 2.5 mg/dl (1.8-2.4); Phosphorus 2.9 mg/dl (2.5-4.9); Potassium 4.1 mmol/L (3.5-5.1)
[2020-04-19 06:13] VITALS: O2SAT 95
--- NOTE | 2020-04-19 06:13 | Electrocardiogram Report ---
Test Reason : Blood Pressure : / mmHG Vent. Rate : 083 BPM Atrial Rate : 084 BPM P-R Int : 000 ms QRS Dur : 112 ms QT Int : 380 ms P-R-T Axes : 000 056 010 degrees QTc Int : 446 ms Accelerated Junctional rhythm ST elevation consider lateral injury or acute infarct ACUTE ID / STEMI Abnormal ECG When compared with ECG of 04-APR-2020 09:34, Accelerated Junctional rhythm has replaced Sinus rhythm ST depression and T wave inversion are now present in anterior leads Confirmed by Moe Jackson ([id number]) on 04/19/2020 6:13:18 AM Referred By: REFERRED SELF Confirmed By:Moe Jackson
--- NOTE | 2020-04-19 06:25 | Electrocardiogram Report ---
Test Reason : Blood Pressure : / mmHG Vent. Rate : 077 BPM Atrial Rate : 077 BPM P-R Int : 158 ms QRS Dur : 096 ms QT Int : 394 ms P-R-T Axes : 059 072 095 degrees QTc Int : 445 ms Normal sinus rhythm Nonspecific ST and T wave abnormality Abnormal ECG When compared with ECG of 18-APR-2020 06:13, Sinus rhythm has replaced Junctional rhythm ST less depressed in Anterior leads ST no longer elevated in Lateral leads Nonspecific T wave abnormality has replaced inverted T waves in Anterior leads Nonspecific T wave abnormality now evident in Lateral leads Confirmed by Moe Jackson ([id number]) on 04/19/2020 6:25:25 AM Referred By: REFERRED SELF Confirmed By:Moe Jackson
[2020-04-19] MEDS ORDERED: oxyCODONE HCL IR 5 MG TAB (IMMEDIATE RELEASE) PO PRN (07:10)
[2020-04-19] MEDS ORDERED: oxyCODONE HCL IR 5 MG TAB (IMMEDIATE RELEASE) PO ONE (07:15)
[2020-04-19] MEDS: ASPIRIN 81 MG ECTAB PO SCH (07:34)
[2020-04-19] MEDS: METOPROLOL TARTRATE 25 MG TAB PO SCH (07:34)
[2020-04-19] MEDS: CLOPIDOGREL BISULFATE 75 MG TAB PO SCH (07:34)
[2020-04-19] MEDS: ATORVASTATIN 40 MG TAB PO SCH (07:35)
--- NOTE | 2020-04-19 07:44 | Hospitalist Progress Note ---
Date of Service April 19, 2020 Assessment & Plan (1) ST elevation (STEMI) myocardial infarction: Cardiac cath revealed thrombus in the SVG at the diagonal - successfully cleared and XOCHITL placed by interventional cardiology. - Further management per cardiology team. (2) Type 2 diabetes mellitus: Pt reports diet-controlled - not on oral medications or insulin although was on SSI coverage post-operatively last week. 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 Outpatient meds continued except for furosemide and potassium - will reassess fluid status in AM - Follow labs Pt was not seen/ examined today (04/19/20) by me, as he left facility w/o letting anybody know. I called the and discussed in detail that I sent Plavix Rx to his pharmacy and need to take ASA and Plavix daily for at least 1 year, pt's understood and reported she would peanut picker the medication for the pt. Admission and Anticipated Discharge Date Admission Date: April 18, 2020 Subjective Notified by nursing staff that pt left his room (ICU 103) and left facility w/o letting anybody know. Called pt, he is currently at home. Reports he is fine at home and would not talk anymore. Pt's reports he does not have any IV site. [facility] liaison notified, cardiology notified. Per [facility] liaison pt made appointment for Thursday w/ PCP. Pt was not seen / examined by me today (04/19/20) Review of Systems Review of Systems: Pt not seen Physical Exam Physical Exam: Pt not seen Results & Data Results & Data ([facility]) Vital Signs (Past 12 Hours) Vital Signs Temp Pulse Pulse Resp BP BP Pulse Ox 04/19/20 05:46 82 18 139/61 95 04/19/20 05:00 75 18 95 04/19/20 04:00 37.3 C 72 14 122/70 94 04/19/20 03:00 73 12 95 04/19/20 02:00 72 18 135/66 95 04/19/20 01:02 82 15 127/59 L 96 04/19/20 00:00 36.9 C 74 20 112/56 L 96 04/18/20 23:00 71 12 95 04/18/20 22:11 69 19 108/61 94 04/18/20 21:00 73 20 128/64 94 04/18/20 20:00 36.7 C 74 20 136/58 L 98 Laboratory Results 04/19/20 04/19/20 04/18/20 Range/Units 04:48 04:48 20:58 WBC 7.24 (4.8-10.8) K/uL RBC 3.41 L (4.7-6.1) M/uL Hgb 11.1 L (14.0-18.0) g/dL Hct 32.9 L (42-52) % MCV 96.5 (80-100) fL MCH 32.6 (25-34) pg MCHC 33.7 (32-36) g/dL RDW Std Deviation 43.6 (36.4-46.3) fL RDW Coeff of Cathie 12.3 (11.5-14.5) % Plt Count 271 (130-400) K/uL MPV 9.3 (7.4-10.4) fL Immature Gran % (Auto) 0.3 % Neut % (Auto) 71.8 % Lymph % (Auto) 13.5 % [place] % (Auto) 12.2 % Eos % (Auto) 1.8 % Baso % (Auto) 0.4 % Neut # (Auto) 5.20 (1.4-6.5) K/uL Lymph # (Auto) 0.98 L (1.2-3.4) K/uL [place] # (Auto) 0.88 H (0.11-0.59) K/uL Eos # (Auto) 0.13 (0-0.5) K/uL Baso # (Auto) 0.03 (0-0.2) K/uL Immature Gran # (Auto) 0.02 (0.00-0.02) K/uL Activ Coag Time Kaolin (94-140) SECONDS Sodium 138 (136-145) mmol/L Potassium 4.1 (3.5-5.1) mmol/L Chloride 107 (98-107) mmol/L Carbon Dioxide 27 (21-32) mmol/L Anion Gap 4.0 (3-11) BUN 14 (7-18) mg/dl Creatinine 1.14 (0.6-1.4) mg/dl Est Cr Clr Drug Dosing 68.0 ml/min Est GFR ( Amer) 74.6 Est GFR (Non-Af Amer) 64.3 BUN/Creatinine Ratio 12.2 (10-20) Glucose 133 H (70-99) mg/dl POC Glucose 156 H (70-99) mg/dl Calcium 8.8 (8.5-10.1) mg/dl Phosphorus 2.9 (2.5-4.9) mg/dl Magnesium 2.5 H (1.8-2.4) mg/dl Troponin I (0-0.045) ng/ml Nasal Screen MRSA (PCR) (Negative) 04/18/20 04/18/20 04/18/20 Range/Units 20:44 18:35 14:17 WBC (4.8-10.8) K/uL RBC (4.7-6.1) M/uL Hgb (14.0-18.0) g/dL Hct (42-52) % MCV (80-100) fL MCH (25-34) pg MCHC (32-36) g/dL RDW Std Deviation (36.4-46.3) fL RDW Coeff of Cathie (11.5-14.5) % Plt Count (130-400) K/uL MPV (7.4-10.4) fL Immature Gran % (Auto) % Neut % (Auto) % Lymph % (Auto) % [place] % (Auto) % Eos % (Auto) % Baso % (Auto) % Neut # (Auto) (1.4-6.5) K/uL Lymph # (Auto) (1.2-3.4) K/uL [place] # (Auto) (0.11-0.59) K/uL Eos # (Auto) (0-0.5) K/uL Baso # (Auto) (0-0.2) K/uL Immature Gran # (Auto) (0.00-0.02) K/uL Activ Coag Time Kaolin (94-140) SECONDS Sodium (136-145) mmol/L Potassium (3.5-5.1) mmol/L Chloride (98-107) mmol/L Carbon Dioxide (21-32) mmol/L Anion Gap (3-11) BUN (7-18) mg/dl Creatinine (0.6-1.4) mg/dl Est Cr Clr Drug Dosing ml/min Est GFR ( Amer) Est GFR (Non-Af Amer) BUN/Creatinine Ratio (10-20) Glucose (70-99) mg/dl POC Glucose 160 H (70-99) mg/dl Calcium (8.5-10.1) mg/dl Phosphorus (2.5-4.9) mg/dl Magnesium (1.8-2.4) mg/dl Troponin I 11.200 H* 16.000 H* (0-0.045) ng/ml Nasal Screen MRSA (PCR) (Negative) 04/18/20 04/18/20 04/18/20 Range/Units 12:21 09:20 07:53 WBC (4.8-10.8) K/uL RBC (4.7-6.1) M/uL Hgb (14.0-18.0) g/dL Hct (42-52) % MCV (80-100) fL MCH (25-34) pg MCHC (32-36) g/dL RDW Std Deviation (36.4-46.3) fL RDW Coeff of Cathie (11.5-14.5) % Plt Count (130-400) K/uL MPV (7.4-10.4) fL Immature Gran % (Auto) % Neut % (Auto) % Lymph % (Auto) % [place] % (Auto) % Eos % (Auto) % Baso % (Auto) % Neut # (Auto) (1.4-6.5) K/uL Lymph # (Auto) (1.2-3.4) K/uL [place] # (Auto) (0.11-0.59) K/uL Eos # (Auto) (0-0.5) K/uL Baso # (Auto) (0-0.2) K/uL Immature Gran # (Auto) (0.00-0.02) K/uL Activ Coag Time Kaolin 213 H (94-140) SECONDS Sodium (136-145) mmol/L Potassium (3.5-5.1) mmol/L Chloride (98-107) mmol/L Carbon Dioxide (21-32) mmol/L Anion Gap (3-11) BUN (7-18) mg/dl Creatinine (0.6-1.4) mg/dl Est Cr Clr Drug Dosing ml/min Est GFR ( Amer) Est GFR (Non-Af Amer) BUN/Creatinine Ratio (10-20) Glucose (70-99) mg/dl POC Glucose 133 H (70-99) mg/dl Calcium (8.5-10.1) mg/dl Phosphorus (2.5-4.9) mg/dl Magnesium (1.8-2.4) mg/dl Troponin I (0-0.045) ng/ml Nasal Screen MRSA (PCR) Negative (Negative) Medications Administered Current Inpatient Medications Acetaminophen (Acetaminophen 325 Mg Tab) 650 mg PO Q4H PRN PRN Reason: MILD Pain (Scale 1,2,3) Stop: 05/18/20 08:24 Aspirin (Aspirin 81 Mg Ectab) 81 mg PO [facility] Stop: 05/18/20 09:59 Last Admin: 04/19/20 07:34 Dose: 81 mg Documented by: Atorvastatin Calcium (Atorvastatin 40 Mg Tab) 40 mg PO [facility] Stop: 05/18/20 08:59 Last Admin: 04/19/20 07:35 Dose: 40 mg Documented by: Clopidogrel Bisulfate (Clopidogrel Bisulfate 75 Mg Tab) 75 mg PO [facility] Stop: 05/18/20 09:59 Last Admin: 04/19/20 07:34 Dose: 75 mg Documented by: Metoprolol Tartrate (Metoprolol Tartrate 25 Mg Tab) 25 mg PO BID [facility] Stop: 05/18/20 09:59 Last Admin: 04/19/20 07:34 Dose: 25 mg Documented by: Miscellaneous (Icu Protocol For Hyperglycemia) 1 ea N/A PRN PRN; Protocol PRN Reason: Hyperglycemia Protocol Stop: 04/20/20 08:24 Nitroglycerin (Nitroglycerin Sl 0.4 Mg/Tab Tab) 0.4 mg SL PRN PRN PRN Reason: Chest Pain Stop: 05/18/20 08:24 Ondansetron HCl (Ondansetron Inj 2 Mg/Ml 2 Ml Vial) 4 mg IV Q6H PRN PRN Reason: Nausea And Vomiting Stop: 05/18/20 08:24 Oxycodone HCl (Oxycodone Hcl Ir 5 Mg Tab (Immediate Release)) 5 mg PO Q4H PRN PRN Reason: Pain Stop: 05/03/20 07:09 Tamsulosin HCl (Tamsulosin Hcl 0.4 Mg Cap) 0.8 mg PO HS [facility] Stop: 05/18/20 20:59 Last Admin: 04/18/20 20:01 Dose: 0.8 mg Documented by: (1) Type 2 diabetes mellitus Diabetes mellitus complication status: without complication Diabetes mellitus long-term insulin use: without long-term use Qualified Code(s): E11.9 - Type 2 diabetes mellitus without complications (2) ST elevation (STEMI) myocardial infarction Involved coronary artery: unspecified coronary artery Qualified Code(s): I21.3 - ST elevation (STEMI) myocardial infarction of unspecified site (3) HTN (hypertension) Hypertension type: essential hypertension Qualified Code(s): I10 - Essential (primary) hypertension
[2020-04-19] MEDS ORDERED: Nursing to Pharmacy Communication SCH (08:00)
[2020-04-19] MEDS ORDERED: MoRPHine SULFATE 2 MG/ML CARP ONE (08:02)
[2020-04-19] MEDS ORDERED: MoRPHine SULFATE 2 MG/ML CARP IV STA (08:39)
--- NOTE | 2020-04-19 09:14 | Cardiology Progress Note ---
Date of Service April 19, 2020 Assessment & Plan (1) CAD (coronary artery disease): (2) Aortic stenosis, moderate: (3) Hereditary hemochromatosis: (4) Type 2 diabetes mellitus: (5) ST elevation (STEMI) myocardial infarction: (6) S/P AVR: (7) Hx of CABG: The patient's right upper chest and shoulder discomfort is worsened with movement of his right upper extremity and I believe it is most likely residual musculoskeletal pain from his surgery. His EKG is not changed or at least wo rsened. Going to continue with analgesia at this point. We will check a troponin. Admission and Anticipated Discharge Date Admission Date: April 18, 2020 Subjective is very anxiousThe patient. He began to have right upper shoulder discomfort last night which concerned him. He was given oxycodone as well as IV morphine with some improvement. Review of Systems Review of Systems: All systems reviewed & are unremarkable except as noted in Subjective Physical Exam Physical Exam: General: no acute distress and stated age Head: normocephalic, no masses, lesions, tenderness or abnormalities Eyes: conjunctiva are pink and non-injected, sclera clear Neck: supple, no adenopathy, no bruits, normal jugular venous pulse, no hepatojugular reflux Chest: normal shape and normal respiratory effort Lungs: clear to auscultation and percussion Cardiac Exam: - regular rate & rhythm, no murmurs gallops or rubs - normal S1, normal S2 Pulses: 2(+) throughout Abdomen: abdomen soft, non-tender, no abnormal masses and no hepatosplenomegaly Musculoskeletal: no gait disturbance, no joint inflammation, no deforming arthritis Extremities: no edema and no cyanosis Neuro: grossly normal exam Results & Data ([facility]) Vital Signs (Past 12 Hours) Vital Signs Temp Pulse Pulse Resp BP BP Pulse Ox 04/19/20 05:46 82 18 139/61 95 04/19/20 05:00 75 18 95 04/19/20 04:00 37.3 C 72 14 122/70 94 04/19/20 03:00 73 12 95 04/19/20 02:00 72 18 135/66 95 04/19/20 01:02 82 15 127/59 L 96 04/19/20 00:00 36.9 C 74 20 112/56 L 96 04/18/20 23:00 71 12 95 04/18/20 22:11 69 19 108/61 94 Laboratory Results Laboratory Results - last 24 hr 04/18/20 04/18/20 04/18/20 09:20 12:21 14:17 WBC RBC Hgb Hct MCV MCH MCHC RDW Std Deviation RDW Coeff of Cathie Plt Count MPV Immature Gran % (Auto) Neut % (Auto) Lymph % (Auto) [place] % (Auto) Eos % (Auto) Baso % (Auto) Neut # (Auto) Lymph # (Auto) [place] # (Auto) Eos # (Auto) Baso # (Auto) Immature Gran # (Auto) Sodium Potassium Chloride Carbon Dioxide Anion Gap BUN Creatinine Est Cr Clr Drug Dosing Est GFR ( Amer) Est GFR (Non-Af Amer) BUN/Creatinine Ratio Glucose POC Glucose 133 H Calcium Phosphorus Magnesium Troponin I 16.000 H* Nasal Screen MRSA (PCR) Negative 04/18/20 04/18/20 04/18/20 18:35 20:44 20:58 WBC RBC Hgb Hct MCV MCH MCHC RDW Std Deviation RDW Coeff of Cathie Plt Count MPV Immature Gran % (Auto) Neut % (Auto) Lymph % (Auto) [place] % (Auto) Eos % (Auto) Baso % (Auto) Neut # (Auto) Lymph # (Auto) [place] # (Auto) Eos # (Auto) Baso # (Auto) Immature Gran # (Auto) Sodium Potassium Chloride Carbon Dioxide Anion Gap BUN Creatinine Est Cr Clr Drug Dosing Est GFR ( Amer) Est GFR (Non-Af Amer) BUN/Creatinine Ratio Glucose POC Glucose 160 H 156 H Calcium Phosphorus Magnesium Troponin I 11.200 H* Nasal Screen MRSA (PCR) 04/19/20 04/19/20 04:48 04:48 WBC 7.24 RBC 3.41 L Hgb 11.1 L Hct 32.9 L MCV 96.5 MCH 32.6 MCHC 33.7 RDW Std Deviation 43.6 RDW Coeff of Cathie 12.3 Plt Count 271 MPV 9.3 Immature Gran % (Auto) 0.3 Neut % (Auto) 71.8 Lymph % (Auto) 13.5 [place] % (Auto) 12.2 Eos % (Auto) 1.8 Baso % (Auto) 0.4 Neut # (Auto) 5.20 Lymph # (Auto) 0.98 L [place] # (Auto) 0.88 H Eos # (Auto) 0.13 Baso # (Auto) 0.03 Immature Gran # (Auto) 0.02 Sodium 138 Potassium 4.1 Chloride 107 Carbon Dioxide 27 Anion Gap 4.0 BUN 14 Creatinine 1.14 Est Cr Clr Drug Dosing 68.0 Est GFR ( Amer) 74.6 Est GFR (Non-Af Amer) 64.3 BUN/Creatinine Ratio 12.2 Glucose 133 H POC Glucose Calcium 8.8 Phosphorus 2.9 Magnesium 2.5 H Troponin I Nasal Screen MRSA (PCR) Medications Administered Current Inpatient Medications Acetaminophen (Acetaminophen 325 Mg Tab) 650 mg PO Q4H PRN PRN Reason: MILD Pain (Scale 1,2,3) Stop: 05/18/20 08:24 Aspirin (Aspirin 81 Mg Ectab) 81 mg PO [facility] Stop: 05/18/20 09:59 Last Admin: 04/19/20 07:34 Dose: 81 mg Documented by: Atorvastatin Calcium (Atorvastatin 40 Mg Tab) 40 mg PO [facility] Stop: 05/18/20 08:59 Last Admin: 04/19/20 07:35 Dose: 40 mg Documented by: Clopidogrel Bisulfate (Clopidogrel Bisulfate 75 Mg Tab) [facility] Stop: 05/18/20 09:59 Last Admin: 04/19/20 07:34 Dose: 75 mg Documented by: Metoprolol Tartrate (Metoprolol Tartrate 25 Mg Tab) 25 mg PO BID [facility] Stop: 05/18/20 09:59 Last Admin: 04/19/20 07:34 Dose: 25 mg Documented by: Miscellaneous (Icu Protocol For Hyperglycemia) 1 ea N/A PRN PRN; Protocol PRN Reason: Hyperglycemia Protocol Stop: 04/20/20 08:24 Nitroglycerin (Nitroglycerin Sl 0.4 Mg/Tab Tab) 0.4 mg SL PRN PRN PRN Reason: Chest Pain Stop: 05/18/20 08:24 Ondansetron HCl (Ondansetron Inj 2 Mg/Ml 2 Ml Vial) 4 mg IV Q6H PRN PRN Reason: Nausea And Vomiting Stop: 05/18/20 08:24 Oxycodone HCl (Oxycodone Hcl Ir 5 Mg Tab (Immediate Release)) 5 mg PO Q4H PRN PRN Reason: Pain Stop: 05/03/20 07:09 Tamsulosin HCl (Tamsulosin Hcl 0.4 Mg Cap) 0.8 mg PO [facility] Stop: 05/18/20 20:59 Last Admin: 04/18/20 20:01 Dose: 0.8 mg Documented by: (1) Type 2 diabetes mellitus Diabetes mellitus mcfp insulin use: without ocean transportation intermediary use Diabetes mellitus complication status: without complication Qualified Code(s): E11.9 - Type 2 diabetes mellitus without complications (2) ST elevation (STEMI) myocardial infarction Involved coronary artery: unspecified coronary artery Qualified Code(s): I21.3 - ST elevation (STEMI) myocardial infarction of unspecified site
--- NOTE | 2020-04-19 11:11 | Critical Care Progress Note ---
Date of Service April 19, 2020 Assessment & Plan (1) ST elevation (STEMI) myocardial infarction: Impression: 70-year-old male with history of CABG 7 days ago presenting now with acute graft stenosis requiring drug-eluting stent placement. He had an episode of musculoskeletal chest pain earlier which resolved with narcotics. Recommendations: 1. Acute coronary syndrome: Management per cardiology. Will defer anticoagulants to them. 2. Mild anemia: No indication for transfusion currently. Continue to follow. 3. Coronary disease: Patient's outpatient medications will be continued. 4. Patient's remaining medical issues have been addressed by the admitting hospitalist. Patient will be transferred out of the ICU. Will defer to cardiology and the admitting service as to whether or not the patient can go home. We will sign off at this point in time. Feel free to contact us if we can be of additional assistance Admission and Anticipated Discharge Date Admission Date: April 18, 2020 Subjective Patient had some intermittent chest discomfort this morning. His EKG showed no significant changes. They resolved with narcotics. He is anxious to potentially go home later today. Review of Systems Review of Systems: All systems reviewed & are unremarkable except as noted in HPI & below Physical Exam Constitutional: WD/WN, vitals as above Neck: trachea midline, no thyromegaly Respiratory: normal respiratory effort, lungs clear to auscultation Cardiovascular: RRR, no murmur, no edema Gastrointestinal (Abdomen): normal bowel sounds, soft, nontender, no hepatosplenomegaly Musculoskeletal: Extremities: extremities normal to inspection Skin: no rashes, warm and dry Lymphatic: no cervical lymphadenopathy Results & Data Results & Data ([facility]) Vital Signs (Past 12 Hours) Vital Signs Temp Pulse Pulse Resp BP BP Pulse Ox 04/19/20 10:00 67 11 L 04/19/20 09:30 67 18 04/19/20 09:20 73 14 129/61 04/19/20 09:00 72 18 04/19/20 08:48 75 8 L 144/70 H 04/19/20 08:30 74 23 04/19/20 08:18 78 23 151/76 H 04/19/20 08:00 89 13 04/19/20 07:39 86 17 153/70 H 95 04/19/20 07:30 93 H 14 04/19/20 07:10 94 H 17 04/19/20 06:30 71 14 04/19/20 06:29 81 13 04/19/20 05:46 82 18 139/61 95 04/19/20 05:00 75 18 95 04/19/20 04:00 37.3 C 72 14 122/70 94 04/19/20 03:00 73 12 95 04/19/20 02:00 72 18 135/66 95 04/19/20 01:02 82 15 127/59 L 96 04/19/20 00:00 36.9 C 74 20 112/56 L 96 Laboratory Results 04/19/20 04:48 04/19/20 04:48 Troponin peaked at 11 and was down to 1.98 this morning Diagnostic Findings Echocardiogram performed today showed an EF of 50 to 55% with moderate concentric LVH and no wall motion abnormalities. Bioprosthetic valve well- seated with normal gradient. Coding Level of Care Code 07645 Subseq Hosp Care Lvl [address] elevation (STEMI) myocardial infarction I21.3 Involved coronary artery: unspecified coronary artery (1) ST elevation (STEMI) myocardial infarction Involved coronary artery: unspecified coronary artery Qualified Code(s): I21.3 - ST elevation (STEMI) myocardial infarction of unspecified site
[2020-04-19 13:32] VITALS: BP 112/56; PULSE 74
--- NOTE | 2020-04-19 14:01 | Discharge Summary ---
Date of Service April 19, 2020 Admission HPI Per Admitting Provider This is a 70 y/o male with a PMH of CAD s/p CABG x 4 (04/11/20), aortic stenosis s/p AVR (04/11/20), DM2, HTN, dyslipidemia, BPH, bilateral carotid artery stenosis, and prostate cancer who presented to the ED early this morning with chest pain, was found to have a STEMI, and sent urgent to cardiac cath where he was found to have stenosis of the graft at the junction of the diagonal that was subsequently cleared and stented with a XOCHITL. Pt reports that he was doing well at home since discharge and felt like he was gradually improving a little each day. He noted some chest pain related to incision, especially with coughing or specific movements, but it was always substernal in location. However, this morning around 3:30 am he woke up with significant right-sided chest pain that is different from what he had been experiencing. When the pain did not quickly resolve, he became concerned and called EMS. In transport, he was noted to have ST segment elevation in the anterior leads with subsequent EKG in the ED showing potential progression of ischemia. Heart alert was called and patient was sent to cardiac cath as discussed. Currently, pt is seen in the ICU. He reports that the previous CP that brought him to the hospital has resolved, and the substernal CP from recent surgery is minimal. He denies pain at the groin site. His main complaint at present is shortness of breath related to lying flat after cath. Otherwise he is feeling well. Admission Exam Per Admitting Provider Constitutional: WD/WN, vitals as above Eyes: + anicteric sclerae Neck: trachea midline Respiratory: no respiratory distress and no labored breathing Auscultation: lungs clear to auscultation bilaterally; no rales, no rhonchi and no wheezes Cardiovascular: Rate/Rhythm: regular rate and regular rhythm Vessels: dorsalis pedis pulses present Extremities: no pedal edema Gastrointestinal (Abdomen): Inspection/Auscultation: normal bowel sounds; abdomen not distended Percussion/Palpation: abdomen soft; abdomen nontender Musculoskeletal: Head/Neck/Chest: normocephalic and head atraumatic Skin: no rashes, warm and dry sternal incision healing well without erythema, warmth or drainage. Surrounding ecchymosis fading. Neurologic: moves all extremities; not confused Speech / Cognition: normal speech Psychiatric: A+Ox3, euthymic affect Principal Diagnosis STEMI Discharge Exam Pt not seen Discharge Data Allergies Allergy/AdvReac Type Severity Reaction Status Date / Time cat dander Allergy Mild hives Verified 04/18/20 06:07 Penicillins Allergy Unknown . Verified 04/18/20 06:07 Consultations 04/18/20 08:28 Consult Cardiac Rehabilitation Routine 04/18/20 08:29 Consult Case Management - Discharge Planning Routine Consult Welfare Eligibility Worker Routine 04/18/20 11:42 Consult Cardiology Routine Procedures Performed Operation Date: 04/18/20 06:15 Actual Procedures p Aspiration/PCI w/XOCHITL for Stemi - Jesse Ledesma MD s Cineradiography w/Routine Exam - Jesse Ledesma MD s Cath, Left w/Cors Vent Grafts - Jesse Ledesma MD Ordered Studies 04/18/20 06:15 CL Cath Imgs for PACS use only Stat Hospital Course (1) ST elevation (STEMI) myocardial infarction: Cardiac cath revealed thrombus in the SVG at the diagonal - successfully cleared and XOCHITL placed by interventional cardiology. - Further management per cardiology team. Dual antiplatelet therapy for at least a year - ASA 81 mg, Plavix 75 mg daily Cont. home metoprolol and statin ASCVD risk factor modification Consult cardiac Rehab (2) Type 2 diabetes mellitus: Pt reports diet-controlled - not on oral medications or insulin although was on SSI coverage post-operatively last week. 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 Outpatient meds continued except for furosemide and potassium - will reassess fluid status in AM - Follow labs Pt was not seen/ examined today (04/19/20) by me, as he left facility w/o letting anybody know. I called the and discussed in detail that I sent Plavix Rx to his pharmacy and need to take ASA and Plavix daily for at least 1 year, pt's understood and reported she would pick out hand the medication for the pt. Total Time Total Time Spent Total Time Spent (In Minutes): 0 Discharge Plan Discharge Items Patient Disposition: Home - Self-Care Reason For Visit: ACS Discharge Diagnosis: STEMI Activity: As commented below Non-emergency contact: Primary Care Provider and Winery Worker Call non-emergency contact if: you have any medication questions and your symptoms worsen Follow-up/Referrals: Melvin Pickard MD [Primary Care Provider] - Diet: Heart Healthy Addtl Attending Provider Instructions: Instructions were not provided to the pt as pt left facility w/o letting anybody know. I called and talked to pt's - given detailed instructions about Plavix which was sent to his pharmacy. Pending Studies at Discharge: No Medications and DC Order Prescriptions: New clopidogrel [Plavix] 75 mg tablet 75 mg PO DAILY Qty: 30 RF: 0 Continued tamsulosin [Flomax] 0.4 mg capsule 0.8 mg PO HS RF: 0 aspirin 81 mg Tablet,Delayed Release (Dr/Ec) 81 mg PO QAM Qty: 30 RF: 0 nitroglycerin [Nitrostat] 0.4 mg Tablet, Sublingual 0.4 mg sublingual PRN Qty: 25 RF: 1 metoprolol tartrate 25 mg Tablet 25 mg PO BID Qty: 60 RF: 0 tramadol 50 mg tablet 50 mg PO Q6 PRN (Reason: pain) RF: 0 furosemide 40 mg Tablet 40 mg PO DAILY RF: 0 atorvastatin 40 mg Tablet 40 mg PO HS RF: 0 potassium chloride 10 mEq Capsule, Extended Release 20 meq PO DAILY RF: 0 oxycodone 5 mg tablet 5 mg PO Q4 PRN (Reason: Moderate Pain (Scale Score 5-6)) RF: 0 Discharge Orders: Discharge Order (Routine); Ordered 04/19/20 Ordered By: Manish Acharya Admission Data Admit Date/Time: 04/18/20 08:29 Attending Provider: Manish Acharya Admit Provider: Jesse Ledesma Primary Care Provider: Melvin Pickard Other Providers: Cristino Godfrey ; Cristobal Norris ; Vishnu Molina Other Interventions: Discharge Summary Assessment (RN) Last Done: 04/19/20 13:31
--- NOTE | 2020-04-20 05:45 | Electrocardiogram Report ---
Test Reason : Blood Pressure : / mmHG Vent. Rate : 087 BPM Atrial Rate : 087 BPM P-R Int : 150 ms QRS Dur : 098 ms QT Int : 386 ms P-R-T Axes : 049 046 039 degrees QTc Int : 464 ms Sinus rhythm with frequent Premature ventricular complexes Inferior ST elevation, consider injury pattern Prolonged QT Abnormal ECG When compared with ECG of 18-APR-2020 08:36, Premature ventricular complexes are now Present Inverted T waves have replaced nonspecific T wave abnormality in Anterior leads ST elevation now present in Inferior leads Confirmed by Moe Jackson ([id number]) on 04/20/2020 5:45:07 AM Referred By: REFERRED SELF Confirmed By:Moe Jackson
== END 2020-04-19 13:32 | disposition home or self-care (01) | DRG 246 ==
LOC: ED 05:52 → CC 06:51 → SUATTDRO 08:29 → 1E 08:29

== ENCOUNTER 2021-03-04 09:32 | Observation (INO) ==
[2021-03-04 10:34] LABS: Basophils # (auto) 0.03 K/uL (0-0.2); Basophils % (auto) 0.6 %; Eosinophils # (auto) 0.03 K/uL (0-0.5); Eosinophils % (auto) 0.6 %; Hematocrit (blood only) 50.7 % (42-52); Hemoglobin 17.8 g/dL (14.0-18.0); Immature Granulocytes # (auto) 0.01 K/uL (0.00-0.02); Immature Granulocytes % (auto) 0.2 %; Lymphocytes # (auto) 0.53 K/uL (1.2-3.4); Lymphocytes % (auto) 10.4 %; Mean Corpuscular Hemoglobin 34.1 pg (25-34); Mean Corpuscular Hgb Conc 35.1 g/dL (32-36); Mean Corpuscular Volume 97.1 fL (80-100); Mean Platelet Volume 10.4 fL (7.4-10.4); Monocytes % (auto) 11.7 %; Neutrophils # (auto) 3.92 K/uL (1.4-6.5); Neutrophils % (auto) 76.5 %; Platelet Count 149 K/uL (130-400); RDW Coefficient of Variation 12.7 % (11.5-14.5); RDW Standard Deviation 45.3 fL (36.4-46.3); Red Blood Count 5.22 M/uL (4.7-6.1); White Blood Count 5.12 K/uL (4.8-10.8)
--- NOTE | 2021-03-04 10:39 | XRay Report ---
XR chest 1V portable CLINICAL HISTORY: Atypical chest pain. COMPARISON STUDY: Chest CT August 01, 2018. Chest radiograph June 27, 2020. FINDINGS: Median sternotomy wires and mediastinal surgical clips are noted. Lung volumes are normal. Lungs are clear. There is no pneumothorax or pleural effusion. Cardiac size is stable. Mediastinal co ntours are normal. There is no evidence for pulmonary edema. IMPRESSION: No acute cardiopulmonary findings. No change in appearance of the chest. ACT 112: Negative or not required by law. Electronically signed by: Pa Rosa M.D. 03/04/2021 10:38 AM
[2021-03-04 10:43] LABS: Partial Thromboplastin Ratio 0.9; Partial Thromboplastin Time 24.8 Seconds (21.0-31.0); Prothrombin Time 10.3 Seconds (9.0-12.0)
[2021-03-04] MEDS ORDERED: NITROGLYCERIN SL 0.4 MG/TAB TAB SL STA (10:46)
[2021-03-04 11:21] LABS: Alanine Aminotransferase 34 U/L (12-78); Albumin Level 3.8 gm/dl (3.4-5.0); Aspartate Aminotransferase 13 U/L (15-37); BUN Creatinine Ratio 14.2 (10-20); Blood Urea Nitrogen 17 mg/dl (7-18); Calcium 9.8 mg/dl (8.5-10.1); Carbon Dioxide 26 mmol/L (21-32); Chloride 106 mmol/L (98-107); Creatinine Clr Calc Pharmacy 63.4 ml/min; Est GFR (African American) 70.8 ml/min; Est GFR (Non-African American) 61.1 ml/min; Glucose 137 mg/dl (70-99); Lipase 150 U/L (73-393); Potassium 4.3 mmol/L (3.5-5.1); Sodium 139 mmol/L (136-145)
[2021-03-04 11:26] LABS: Albumin Globulin Ratio 1.3 (0.9-2); Alkaline Phosphatase 70 U/L (45-117); Bilirubin,Total 0.6 mg/dl (0.2-1); Total Protein 6.8 gm/dl (6.4-8.2); Troponin I < 0.015 ng/ml (0-0.045)
[2021-03-04] MEDS ORDERED: MoRPHine SULFATE 2 MG/ML CARP IV STA (11:28)
--- NOTE | 2021-03-04 11:34 | Emergency Department Note ---
History of Present Illness General Chief complaint: Chest Pain Stated complaint: CHEST PAIN,HX OF HEART ATTACK Time Seen by Provider: 03/04/21 09:46 History of Present Illness Maximum Pain Intensity: 8 Pain for [id number] male presents to the ED with a chief complaint of fast 3 hours prior to arrival. He states that he has been having some intermittent chest pains for the past month or so. He states that it normally seems to improve with rest or nitroglycerin.The patient had a CABG in early April 2020. About 3 weeks later he required a stent in his SVG to D1 related to chest pain and an DE. He states that his symptoms today seem reminiscent of that pain except for it is on the left onset of the right. He also has been reporting some exertional chest discomfort that improved with nitro over the past month or so. He normally takes his Imdur and 2 Tylenol in the morning that seem to help with his discomfort but today that did not help. Denies any shortness of bhavana th, fevers or recent illness. Home Medications Medication Instructions Recorded Confirmed Type tamsulosin 0.4 mg capsule (Flomax) 0.8 mg PO HS cap 03/16/20 03/04/21 History aspirin 81 mg tablet,delayed 81 mg PO QAM #30 tab 04/04/20 03/04/21 Rx release metoprolol tartrate 25 mg tablet 25 mg PO BID #60 tab 04/04/20 03/04/21 Rx nitroglycerin 0.4 mg sublingual 0.4 mg SUBLINGUAL PRN #25 tab 04/04/20 03/04/21 Rx tablet (Nitrostat) atorvastatin 40 mg tablet 40 mg PO DAILY 04/18/20 03/04/21 History tramadol 50 mg tablet 50 mg PO Q6 PRN 04/18/20 03/04/21 History clopidogrel 75 mg tablet (Plavix) 75 mg PO DAILY #30 tab 04/19/20 03/04/21 Rx isosorbide mononitrate 60 mg 60 mg PO DAILY 09/12/20 03/04/21 History tablet,extended release 24 hr losartan 50 mg tablet 50 mg PO DAILY 03/04/21 03/04/21 History pantoprazole 40 mg tablet,delayed 40 mg PO QAM 03/04/21 03/04/21 History release Allergies Allergy/AdvReac Type Severity Reaction Status Date / Time cat dander Allergy Mild hives Verified 03/04/21 10:33 Penicillins Allergy Unknown . Verified 03/04/21 10:33 Past Med/Surg History Medical History Aortic stenosis, moderate Bilateral carotid artery stenosis BPH with obstruction/lower urinary tract symptoms CAD (coronary artery disease) Chest pain Dyslipidemia Hereditary hemochromatosis History of nonmelanoma skin cancer History of patellar fracture HTN (hypertension) Substernal chest pain Type 2 diabetes mellitus Surgical History History of Mohs micrographic surgery for skin cancer BCC - 2017 History of vasectomy S/P AVR (aortic valve replacement) S/P CABG x 4 Family History Grandfather (Paternal) , age 58 with Parkinsons No problems noted. Grandmother (Paternal) , age 84 old age No problems noted. Grandfather (Maternal) , in his eighties No problems noted. Grandmother (Maternal) , with stroke age 65 No problems noted. Father , age 68 bacterial and viral infection No problems noted. Mother , age 91 with a stroke No problems noted. Sister No problems noted. Sister No problems noted. Son Age: 47 No problems noted. Son Age: 45 No problems noted. Son Age: 30 No problems noted. Social History Smoking Status: Current some day smoker Tobacco Type: Cigars Second Hand Exposure: No; Hx Alcohol Use: Yes Alcohol type: beer Hx Substance Use: No Preferred Language: Sami Communication Ability: Effective Hearing Ability: Hard of Hearing Hop Sorter Required: No Beliefs That Will Affect Care: None marital status: Current Living Situation: Spouse current occupational status: retired Feels Safe at Home: Yes Do you think of yourself as: straight/heterosexual Sexual Activity: has been sexually active, but not for at least 12 months Assistive Devices: None Review of Systems A total of 10 systems reviewed and were otherwise negative Physical Exam Vital Signs Vital Signs - 24 hr 03/04/21 09:33 03/04/21 10:20 03/04/21 10:30 Temperature 37.0 C Temperature Source Oral Pulse Rate 67 Pulse Rate [Brachial] 68 Pulse Rate from SpO2 Sensor Pulse Rhythm Regular Pulse Rhythm [Brachial] Regular Pulse Strength [Brachial] Normal Respiratory Rate 20 20 20 Respiratory Effort / Characteristics Non-Labored Spontaneous Non-Labored Spontaneous Respiratory Depth Normal Normal Respiratory Pattern Regular Regular Blood Pressure 155/71 H Blood Pressure [Left Arm] 128/80 Blood Pressure Mean 99 Blood Pressure Mean [Left Arm] 96 Blood Pressure Position [Left Arm] Sitting Pulse Oximetry 98 96 94 Oxygen Delivery Method Room Air Room Air Room Air Sepsis Recent Fever Within 48 Hours No Sepsis New/Unexplained Change in Mental Status No Sepsis Action Taken by Nursing No Action Required 03/04/21 10:43 03/04/21 10:49 03/04/21 11:00 Temperature Temperature Source Pulse Rate 62 72 Pulse Rate [Brachial] 67 Pulse Rate from SpO2 Sensor 63 73 Pulse Rhythm Pulse Rhythm [Brachial] Regular Pulse Strength [Brachial] Normal Respiratory Rate 19 15 16 Respiratory Effort / Characteristics Non-Labored Spontaneous Respiratory Depth Normal Respiratory Pattern Regular Blood Pressure 117/64 Blood Pressure [Left Arm] 147/80 H Blood Pressure Mean 81 Blood Pressure Mean [Left Arm] 102 Blood Pressure Position [Left Arm] Pulse Oximetry 94 91 94 Oxygen Delivery Method Room Air Sepsis Recent Fever Within 48 Hours Sepsis New/Unexplained Change in Mental Status Sepsis Action Taken by Nursing CONSTITUTIONAL/VITAL SIGNS: Reviewed / noted above. GENERAL: Non-toxic in appearance. INTEGUMENTARY: Warm, dry, and [place]. HEAD: Normocephalic. EYES: without scleral icterus or trauma. ENT/OROPHARYNX: clear and moist. LYMPHADENOPATHY/NECK: Is supple without lymphadenopathy or meningismus. RESPIRATORY: Clear to auscultation bilaterally. No increased work of breathing. CARDIOVASCULAR: Regular rate and rhythm. GI/ABDOMEN: Soft and nontender. No organomegaly or pulsatile mass. EXTREMITIES: Warm and well perfused. BACK: No CVA tenderness. NEUROLOGICAL: Intact without focal deficits. PSYCHIATRIC: normal affect. MUSCULOSKELETAL: Normally developed with good muscle tone. TRIAGE NURSING DOCUMENTATION REVIEWED. Course Administered Medications Discontinued Medications Nitroglycerin (Nitroglycerin Sl 0.4 Mg/Tab Tab) 0.4 mg SL NOW STA Stop: 03/04/21 10:47 Last Admin: 03/04/21 10:56 Dose: 0.4 mg Documented by: [id number] Medical Decision Making Differential Diagnosis The differential that was considered includes acute myocardial infarction, acute coronary syndrome, myocarditis, pericarditis, pericardial effusions /tamponade, esophageal perforation, thoracic aortic dissection, pulmonary embolism, pneumonia, pneumothorax, pancreatitis, shingles, acute cholecystitis, perforated abdominal viscus. Medical Records Attestation: I reviewed the patient's medical records. Home Medications Current Medication List: was personally reviewed by me Laboratory Data Attestation: I reviewed the patient's lab results. Result diagrams: 03/04/21 10:10 03/04/21 10:10 Lab Results 03/04/21 03/04/21 03/04/21 Range/Units 10:10 10:10 10:10 WBC 5.12 (4.8-10.8) K/uL RBC 5.22 (4.7-6.1) M/uL Hgb 17.8 (14.0-18.0) g/dL Hct 50.7 (42-52) % MCV 97.1 (80-100) fL MCH 34.1 H (25-34) pg MCHC 35.1 (32-36) g/dL RDW Std Deviation 45.3 (36.4-46.3) fL RDW Coeff of Cathie 12.7 (11.5-14.5) % Plt Count 149 (130-400) K/uL MPV 10.4 (7.4-10.4) fL Immature Gran % (Auto) 0.2 % Neut % (Auto) 76.5 % Lymph % (Auto) 10.4 % Isabella % (Auto) 11.7 % Eos % (Auto) 0.6 % Baso % (Auto) 0.6 % Neut # (Auto) 3.92 (1.4-6.5) K/uL Lymph # (Auto) 0.53 L (1.2-3.4) K/uL Isabella # (Auto) 0.60 H (0.11-0.59) K/uL Eos # (Auto) 0.03 (0-0.5) K/uL Baso # (Auto) 0.03 (0-0.2) K/uL Immature Gran # (Auto) 0.01 (0.00-0.02) K/uL PT 10.3 (9.0-12.0) Seconds INR 1.0 (0.9-1.1) APTT 24.8 (21.0-31.0) Seconds PTT Ratio 0.9 Sodium 139 (136-145) mmol/L Potassium 4.3 (3.5-5.1) mmol/L Chloride 106 (98-107) mmol/L Carbon Dioxide 26 (21-32) mmol/L Anion Gap 7.0 (3-11) BUN 17 (7-18) mg/dl Creatinine 1.19 (0.6-1.4) mg/dl Est Cr Clr Drug Dosing 63.4 ml/min Est GFR ( Amer) 70.8 ml/min Est GFR (Non-Af Amer) 61.1 ml/min BUN/Creatinine Ratio 14.2 (10-20) Glucose 137 H (70-99) mg/dl Calcium 9.8 (8.5-10.1) mg/dl Total Bilirubin 0.6 (0.2-1) mg/dl AST 13 L (15-37) U/L ALT 34 (12-78) U/L Alkaline Phosphatase 70 (45-117) U/L Troponin I < 0.015 (0-0.045) ng/ml Total Protein 6.8 (6.4-8.2) gm/dl Albumin 3.8 (3.4-5.0) gm/dl Globulin 3.0 (2.5-4.0) gm/dl Albumin/Globulin Ratio 1.3 (0.9-2) Lipase 150 (73-393) U/L Imaging Data Radiologist's Impression: Chest X-Ray 03/04/21 10:06 XR chest 1V portable CLINICAL HISTORY: Atypical chest pain. COMPARISON STUDY: Chest CT August 01, 2018. Chest radiograph June 27, 2020. FINDINGS: Median sternotomy wires and mediastinal surgical clips are noted. Lung volumes are normal. Lungs are clear. There is no pneumothorax or pleural effusion. Cardiac size is stable. Mediastinal contours are normal. There is no evidence for pulmonary edema. IMPRESSION: No acute cardiopulmonary findings. No change in appearance of the chest. ACT 112: Negative or not required by law. Electronically signed by: Pa Rosa M.D. 03/04/2021 10:38 AM ECG Data Attestation: I personally reviewed and interpreted this ECG as follows: Additional Comments: Twelve-lead EKG: Per my interpretation there is normal sinus rhythm at a rate of 67. No ST elevation. No PVCs. Normal QTC. MDM Narrative Patient presents with some chest discomfort as detailed above. The patient's twelve-lead EKG shows a normal sinus rhythm. CBC and chemistry panel was unremarkable. Lipase was negative. Troponin was negative. Chest x-ray was negative for acute disease. Because of patient's history and his ongoing symptoms and recent symptoms over the past month, he will be seen by the hospitalist for further inpatient evaluation and care. He was given a sublingual nitro here which did not seem to improve his pain much. He is already on aspirin and Plavix. He was given some IV morphine for discomfort. Impression & Plan Chest pain Discharge Plan Visit Data Chief Complaint: Chest Pain Stated Complaint: CHEST PAIN,HX OF HEART ATTACK ED Provider: Abraham García ED Midlevel Provider: Shamar Rodas Discharge Problem: Chest pain Patient Disposition: Being Evaluated by Hospitalist Forms Stand Alone Forms: My [facility] [address] Prescriptions Prescriptions: No Action tamsulosin [Flomax] 0.4 mg capsule 0.8 mg PO HS RF: 0 isosorbide mononitrate 60 mg tablet extended release 24 hr 60 mg PO DAILY RF: 0 aspirin 81 mg Tablet,Delayed Release (Dr/Ec) 81 mg PO QAM Qty: 30 RF: 0 nitroglycerin [Nitrostat] 0.4 mg Tablet, Sublingual 0.4 mg sublingual PRN Qty: 25 RF: 1 metoprolol tartrate 25 mg Tablet 25 mg PO BID Qty: 60 RF: 0 tramadol 50 mg tablet 50 mg PO Q6 PRN (Reason: pain) RF: 0 atorvastatin 40 mg Tablet 40 mg PO DAILY RF: 0 clopidogrel [Plavix] 75 mg tablet 75 mg PO DAILY Qty: 30 RF: 0 losartan 50 mg tablet 50 mg PO DAILY RF: 0 pantoprazole 40 mg tablet,delayed release (DR/EC) 40 mg PO QAM RF: 0 Referrals Referrals: Melvin Pickard MD [Primary Care Provider] -
--- NOTE | 2021-03-04 11:48 | Electrocardiogram Report ---
Test Reason : Blood Pressure : / mmHG Vent. Rate : 067 BPM Atrial Rate : 067 BPM P-R Int : 156 ms QRS Dur : 086 ms QT Int : 412 ms P-R-T Axes : 066 061 090 degrees QTc Int : 435 ms Normal sinus rhythm Possible Left atrial enlargement Nonspecific ST abnormality Abnormal ECG When compared with ECG of 27-JUN-2020 11:30, Aberrant conduction is no longer Present Confirmed by Lucas Neff ([id number]) on 03/04/2021 11:48:43 AM Referred By: REFERRED SELF Confirmed By:Erik Nfef
[2021-03-04 11:54] LABS: D Dimer 410 ug/L FEU (0-500)
[2021-03-04] MEDS ORDERED: MoRPHine SULFATE 4 MG/ML 1 ML CARP\\VIAL IV ONE (12:24)
--- NOTE | 2021-03-04 13:39 | History & Physical Report ---
Date of Service March 04, 2021 Assessment & Plan (1) Chest pain: (2) CAD (coronary artery disease): Plan: -Admit to telemetry -Patient presenting from home with reports of worsening left-sided chest pain. Was evaluated in the cardiology clinic on 02/28 and scheduled for stress test on 03/11. Has been ongoing for the past 1 month however acutely worsened this morning. Pain not relieved with 3 sublingual nitroglycerin at home, patient then presented to the ED for further evaluation. -CAD s/p CABG x 3 04/11/20 with subsequent acute graft occlusion of SVG to diagonal on 04/18/2020 and repeat occlusion of the same vessel in July 2020 -Initial troponin negative, EKG without acute ST changes -Patient continuing to have chest pain despite SL nitro and IV morphine, will give additional dose of morphine and reevaluate -Cardiology consult, case discussed with Dr. Mitchell -Trend troponin, resting echo -Continue ASA, Plavix, statin, beta-reji, nitrate (3) Type 2 diabetes mellitus: Plan: -Hgb A1c 7.0 02/28/2021 -Patient currently not on medical therapy, consider starting Metformin at discharge/ follow up as outpt -NovoLog per protocol while hospitalized (4) HTN (hypertension): Plan: -BP controlled, continue isosorbide, losartan, metoprolol (5) DVT prophylaxis: Plan: -SQ Lovenox History of Present Illness Chief Complaint: Chest pain Primary Care Provider: Melvin Pickard MD 70-year-old male with PMH CAD s/p CABG x 3 04/11/20 with subsequent acute graft occlusion of SVG to diagonal on 04/18/2020 and repeat occlusion of the same vessel in July 2020, s/p left carotid endarterectomy, DM type II, history of prostate cancer, aortic valve stenosis s/p bioprosthetic aortic valve repla cement 04/2020, BPH, and other problems listed below who presents to the ED for evaluation of chest pain. Patient has been having episodes of left-sided chest pain for the past 1 month. Reports pain is located in his left axilla and radiates into the left side of his chest. No specific causative or alleviating factors for this pain. Patient reports that he is fairly active and does outside yard work, reports the pain typically does not happen when he is exerting himself. He typically will take Tylenol or sublingual nitroglycerin with relief of the pain.Was seen in the cardiology clinic on 02/28/2021, EKG was unremarkable and patient was scheduled for nuclear stress test on 03/11/2021. This morning, patient reports acute worsening in his pain. He took 3 sublingual nitroglycerin without any relief and then presented to the ED for further evaluation. Patient denies associated shortness of breath, diaphoresis, nausea, lightheadedness. Reports pain at its worst was a #10/10, SL nitro in the ED did not provide any relief, morphine 2 mg IV mildly improve the pain. Patient denies any other recent illnesses, fevers, chills. No abdominal pain, vomiting, diarrhea. Denies urinary symptoms. In the ED, initial troponin is negative and EKG does not show any acute ST changes. Patient is hemodynamically stable. Allergies Allergy/AdvReac Type Severity Reaction Status Date / Time cat dander Allergy Mild hives Verified 03/04/21 10:33 Penicillins Allergy Unknown . Verified 03/04/21 10:33 Home Medications Medication Instructions Recorded Confirmed Type tamsulosin 0.4 mg capsule (Flomax) 0.8 mg PO HS cap 03/16/20 03/04/21 History aspirin 81 mg tablet,delayed 81 mg PO QAM #30 tab 04/04/20 03/04/21 Rx release metoprolol tartrate 25 mg tablet 25 mg PO BID #60 tab 04/04/20 03/04/21 Rx nitroglycerin 0.4 mg sublingual 0.4 mg SUBLINGUAL PRN #25 tab 04/04/20 03/04/21 Rx tablet (Nitrostat) atorvastatin 40 mg tablet 40 mg PO DAILY 04/18/20 03/04/21 History tramadol 50 mg tablet 50 mg PO Q6 PRN 04/18/20 03/04/21 History clopidogrel 75 mg tablet (Plavix) 75 mg PO DAILY #30 tab 04/19/20 03/04/21 Rx isosorbide mononitrate 60 mg 60 mg PO DAILY 09/12/20 03/04/21 History tablet,extended release 24 hr losartan 50 mg tablet 50 mg PO DAILY 03/04/21 03/04/21 History pantoprazole 40 mg tablet,delayed 40 mg PO QAM 03/04/21 03/04/21 History release Past Med/Surg History Medical History Aortic stenosis, moderate Bilateral carotid artery stenosis BPH with obstruction/lower urinary tract symptoms CAD (coronary artery disease) 04/11/2020-CABG x3 04/18/2020-acute graft occlusion of SVG to diagonal July 2020-repeat occlusion of SVG to diagonal Dyslipidemia Hereditary hemochromatosis History of nonmelanoma skin cancer History of patellar fracture HTN (hypertension) Prostate cancer Type 2 diabetes mellitus Surgical History History of left-sided carotid endarterectomy History of Mohs micrographic surgery for skin cancer BCC - 2017 History of vasectomy S/P AVR (aortic valve replacement) 04/2020, bioprosthetic S/P CABG x 3 Family History Grandfather (Paternal) , age 58 with Parkinsons No problems noted. Grandmother (Paternal) , age 84 old age No problems noted. Grandfather (Maternal) , in his eighties No problems noted. Grandmother (Maternal) , with stroke age 65 No problems noted. Father , age 68 bacterial and viral infection No problems noted. Mother , age 91 with a stroke No problems noted. Sister No problems noted. Sister No problems noted. Son Age: 47 No problems noted. Son Age: 45 No problems noted. Son Age: 30 No problems noted. Social History Smoking Status: Current some day smoker Tobacco Type: Cigars Second Hand Exposure: No; Hx Alcohol Use: Yes Alcohol type: beer Hx Substance Use: No Preferred Language: Bulgarian Communication Ability: Effective Hearing Ability: Hard of Hearing Commercial Lines Underwriter Required: No Beliefs That Will Affect Care: None marital status: Current Living Situation: Spouse current occupational status: retired Feels Safe at Home: Yes Do you think of yourself as: straight/heterosexual Sexual Activity: has been sexually active, but not for at least 12 months Assistive Devices: None Review of Systems Review of Systems: ROS per HPI, all other systems reviewed and negative Physical Exam Constitutional: WD/WN, vitals as above Eyes: PERRL, conjunctivae normal, anicteric sclerae ENMT: external ear and nose normal, oropharynx normal Respiratory: normal respiratory effort, lungs clear to auscultation Cardiovascular: Rate/Rhythm: regular rate and regular rhythm Vessels: normal peripheral pulses Extremities: no edema Chest (Breasts): Additional Comments: Chest pain not reproducible on exam Gastrointestinal (Abdomen): normal bowel sounds, soft, nontender, no hepatosplenomegaly Musculoskeletal: no cyanosis or clubbing, extremities motor strength 5/5 Skin: no rashes, warm and dry Neurologic: PERRL, EOMI, accommodation nl, no face palsy, no dysarthria Psychiatric: A+Ox3, euthymic affect Results & Data Results & Data ([facility]) Vital Signs (Past 12 Hours) Vital Signs Temp Pulse Pulse Resp BP BP Pulse Ox 03/04/21 13:00 63 12 137/69 93 03/04/21 12:30 12 151/76 H 03/04/21 12:00 62 16 133/68 91 03/04/21 11:34 73 03/04/21 11:00 72 16 117/64 94 03/04/21 10:49 62 15 91 03/04/21 10:43 67 19 147/80 H 94 03/04/21 10:30 68 20 128/80 94 03/04/21 10:20 20 96 03/04/21 09:33 37.0 C 67 20 155/71 H 98 Laboratory Results Short CBC 03/04/21 Range/Units 10:10 WBC 5.12 (4.8-10.8) K/uL Hgb 17.8 (14.0-18.0) g/dL Hct 50.7 (42-52) % Plt Count 149 (130-400) K/uL BMP 03/04/21 10:10 Sodium 139 Potassium 4.3 Chloride 106 Carbon Dioxide 26 BUN 17 Creatinine 1.19 Glucose 137 H Calcium 9.8 Cardiac Enzymes 03/04/21 Range/Units 10:10 Troponin I < 0.015 (0-0.045) ng/ml Liver Function 03/04/21 Range/Units 10:10 Total Bilirubin 0.6 (0.2-1) mg/dl AST 13 L (15-37) U/L ALT 34 (12-78) U/L Alkaline Phosphatase 70 (45-117) U/L Albumin 3.8 (3.4-5.0) gm/dl Diagnostic Findings Chest X-Ray 03/04/21 10:06 XR chest 1V portable CLINICAL HISTORY: Atypical chest pain. COMPARISON STUDY: Chest CT August 01, 2018. Chest radiograph June 27, 2020. FINDINGS: Median sternotomy wires and mediastinal surgical clips are noted. Lung volumes are normal. Lungs are clear. There is no pneumothorax or pleural effusion. Cardiac size is stable. Mediastinal contours are normal. There is no evidence for pulmonary edema. IMPRESSION: No acute cardiopulmonary findings. No change in appearance of the chest. ACT 112: Negative or not required by law. Electronically signed by: Pa Rosa M.D. 03/04/2021 10:38 AM Code Status & VTE Plan VTE Prophylaxis Plan VTE Prophylaxis will be ordered: Yes Supervising Physician Co-Signing Physician Notes Pt seen and examined by me, care coordinated with JUANJOSE Claudio, pls refer to her note above for further detail. 70 y/o male w/ hx of CAD s/p CABG x 3 04/11/20 with subsequent acute graft occlusion of SVG to diagonal on 04/18/2020 and repeat occlusion of the same vessel in July 2020, s/p left carotid endarterectomy, DM type II, history of prostate cancer, aortic valve stenosis s/p bioprosthetic aortic valve replace ment 04/2020, BPH, who presents to the ED for evaluation of chest pain. Pain is located in his left axilla and radiates into the left side of his chest. Was seen in the cardiology clinic on 02/28/2021, EKG was unremarkable and patient was scheduled for nuclear stress test on 03/11/2021. This morning, patient reports acute worsening in his pain. He took 3 sublingual nitroglycerin without any relief and then presented to the ED for further evaluation. In the ED, initial troponin is negative and EKG does not show any acute ST changes. Patient is hemodynamically stable. He is alert oriented answering questions appropriately. Lungs are clear to auscultation b/l. Heart sounds are regular , no murmur noted. Abdomen is soft, nontender, nondistended +bowel sounds. No significant LE noted. Skin is warm, dry, well perfused. Trend troponin, monitor on tele, plan for echo/ stress test, cardiology consulted. Tati Acharya MD (1) Type 2 diabetes mellitus Diabetes mellitus complication status: without complication Diabetes mellitus usp insulin use: without usp use Qualified Code(s): E11.9 - Type 2 diabetes mellitus without complications (2) Chest pain Chest pain type: precordial pain Qualified Code(s): R07.2 - Precordial pain (3) HTN (hypertension) Hypertension type: essential hypertension Qualified Code(s): I10 - Essential (primary) hypertension
[2021-03-04] MEDS ORDERED: ASPIRIN 81 MG ECTAB PO STA (16:58)
[2021-03-04] MEDS ORDERED: METOPROLOL TARTRATE 25 MG TAB PO STA (16:59)
[2021-03-04] MEDS ORDERED: PANTOprazole 40 MG TAB PO STA (16:59)
[2021-03-04] MEDS ORDERED: CLOPIDOGREL BISULFATE 75 MG TAB PO ONE (17:00)
[2021-03-04] MEDS ORDERED: GLUCOSE 10 TABS/TUBE PO PRN (19:37)
[2021-03-04] MEDS ORDERED: ACETAMINOPHEN 325 MG TAB PO PRN (19:37)
[2021-03-04] MEDS ORDERED: traMADol HCL 50 MG TABLET PO PRN (19:37)
[2021-03-04] MEDS ORDERED: DEXTROSE 50% 50 ML SYRINGE IV PRN (19:37)
[2021-03-04] MEDS ORDERED: NITROGLYCERIN SL 0.4 MG/TAB TAB SL PRN (19:37)
[2021-03-04] MEDS ORDERED: CARBOHYDRATES FOR HYPOGLYCEMIA PO PRN (19:37)
[2021-03-04] MEDS ORDERED: GLUCOSE 40% GEL 15 GM TUBE PO PRN (19:37)
[2021-03-04] MEDS ORDERED: GLUCAGON FOR INJ 1 MG VIAL SQ PRN (19:37)
[2021-03-04] MEDS ORDERED: MoRPHine SULFATE 4 MG/ML 1 ML CARP\\VIAL IV PRN (19:49)
[2021-03-04] MEDS ORDERED: ENOXAPARIN INJ 40 MG/0.4 ML SYR SQ SCH (20:00)
--- NOTE | 2021-03-04 20:46 | Cardiology Consultation ---
Date of Consultation March 04, 2021 Assessment & Plan (1) Chest pain: The patient's symptoms are somewhat atypical for angina, but he states that in some ways they are reminiscent of the symptoms that he presented with at the time of his myocardial infarction and stent in April,. He has had hours of symptoms, with 2 undetectable troponin I levels, and his EKG reveals chronic repolarization changes that are unchanged compared to previous. He has had a resting echocardiogram with no regional wall motion imbalance, and the hemodynamic assessment of his aortic valve prosthesis is within normal limits. I reviewed the report of his cardiac catheterization that took place at [facility] on 07/03/2020. Severe [place] vessel disease was noted at that time. The SHANKS to LAD graft was patent, the sequential saphenous vein graft to the RPDA and RPL was patent. The saphenous vein graft to diagonal 1 was occluded and not amenable to revascularization. Ongoing medical management pursued at that time. We will continue the patient's prior to hospital medications. I plan to keep him n.p.o. tomorrow, and if his enzymes remain negative, will consider proceeding with a Lexiscan nuclear stress test. Patient agreeable to this plan. History of Present Illness Attending Physician: Manish Acharya MD History of Present Illness Tal Diaz is a 70 year old male seen in cardiology consultation per the request of JUANJOSE Lay for the evaluation of chest pain. Patient presented to the emergency department with onset of chest discomfort this morning. He had received a total of 4 sublingual nitroglycerin tablets which did not modify the discomfort. He also recently been seen by Nathaly Daniel PA-C of our practice as an outpatient on 02/28/2021 also noting intermittent chest discomfort. EKG performed on arrival to the emergency room today at 933 revealed normal sinus rhythm at 67 bpm with mild nonspecific repolarization changes. He has a prior finding of chronic age-indeterminate septal infarction pattern. Past Cardiac History: History includes: 1. Chronic stable ischemic heart disease status post coronary bypass grafting April 11, 2020 SHANKS-LAD,Ao-PDA-RPL, Ao-diagonal with reversed saphenous vein 2. Aortic valve replacement with [facility] 25 mm prosthesis 3. Urgent coronary intervention saphenous vein graft to diagonal 04/18/20 acute vein graft occlusion same vessel July 2020 4. Bilateral atherosclerotic carotid disease status post carotid endarterectomy, left, October 29, 2020 5. Hypertension 6. Hereditary hemochromatosis 7. Type 2 diabetes mellitus Allergies Allergy/AdvReac Type Severity Reaction Status Date / Time cat dander Allergy Mild hives Verified 03/04/21 10:33 Penicillins Allergy Unknown . Verified 03/04/21 10:33 Home Medications Medication Instructions Recorded Confirmed Type tamsulosin 0.4 mg capsule (Flomax) 0.8 mg PO HS cap 03/16/20 03/04/21 History aspirin 81 mg tablet,delayed 81 mg PO QAM #30 tab 04/04/20 03/04/21 Rx release metoprolol tartrate 25 mg tablet 25 mg PO BID #60 tab 04/04/20 03/04/21 Rx nitroglycerin 0.4 mg sublingual 0.4 mg SUBLINGUAL PRN #25 tab 04/04/20 03/04/21 Rx tablet (Nitrostat) atorvastatin 40 mg tablet 40 mg PO DAILY 04/18/20 03/04/21 History tramadol 50 mg tablet 50 mg PO Q6 PRN 04/18/20 03/04/21 History clopidogrel 75 mg tablet (Plavix) 75 mg PO DAILY #30 tab 04/19/20 03/04/21 Rx isosorbide mononitrate 60 mg 60 mg PO DAILY 09/12/20 03/04/21 History tablet,extended release 24 hr losartan 50 mg tablet 50 mg PO DAILY 03/04/21 03/04/21 History pantoprazole 40 mg tablet,delayed 40 mg PO QAM 03/04/21 03/04/21 History release Patient History Medical History Aortic stenosis, moderate Bilateral carotid artery stenosis BPH with obstruction/lower urinary tract symptoms CAD (coronary artery disease) 04/11/2020-CABG x3 04/18/2020-acute graft occlusion of SVG to diagonal July 2020-repeat occlusion of SVG to diagonal Dyslipidemia Hereditary hemochromatosis History of nonmelanoma skin cancer History of patellar fracture HTN (hypertension) Prostate cancer Type 2 diabetes mellitus Surgical History History of left-sided carotid endarterectomy History of Mohs micrographic surgery for skin cancer BCC - 2017 History of vasectomy S/P AVR (aortic valve replacement) 04/2020, bioprosthetic S/P CABG x 3 Family History Grandfather (Paternal) , age 58 with Parkinsons No problems noted. Grandmother (Paternal) , age 84 old age No problems noted. Grandfather (Maternal) , in his eighties No problems noted. Grandmother (Maternal) , with stroke age 65 No problems noted. Father , age 68 bacterial and viral infection No problems noted. Mother , age 91 with a stroke No problems noted. Sister No problems noted. Sister No problems noted. Son Age: 47 No problems noted. Son Age: 45 No problems noted. Son Age: 30 No problems noted. 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 Beliefs That Will Affect Care: None marital status: Current Living Situation: Spouse current occupational status: retired Feels Safe at Home: Yes Do you think of yourself as: straight/heterosexual Sexual Activity: has been sexually active, but not for at least 12 months Assistive Devices: Glasses Review of Systems Review of Systems: All systems reviewed & are unremarkable except as noted in HPI & below Physical Exam Physical Exam: Temp Pulse Resp BP Pulse Ox 36.9 C 61 13 159/81 H 97 03/04/21 15:49 03/04/21 18:30 03/04/21 18:01 03/04/21 15:49 03/04/21 16:00 Constitutional: WD/WN, vitals as above Respiratory: normal respiratory effort, lungs clear to auscultation Cardiovascular: RRR, no murmur, no edema Gastrointestinal (Abdomen): normal bowel sounds, soft, nontender, no hepatosplenomegaly Neurologic: PERRL, EOMI, accommodation nl, no face palsy, no dysarthria Results & Data ([facility]) Vital Signs (Past 12 Hours) Vital Signs Temp Pulse Pulse Resp BP BP Pulse Ox 03/04/21 18:30 61 03/04/21 18:01 65 13 03/04/21 17:30 71 16 03/04/21 17:00 57 L 14 03/04/21 16:00 64 16 97 03/04/21 15:49 36.9 C 60 20 159/81 H 95 03/04/21 15:30 69 15 96 03/04/21 15:00 60 15 159/81 H 03/04/21 14:40 62 14 150/75 H 98 03/04/21 14:00 61 15 03/04/21 13:30 59 L 13 95 03/04/21 13:00 63 12 137/69 93 03/04/21 12:30 12 151/76 H 03/04/21 12:00 62 16 133/68 91 03/04/21 11:34 73 03/04/21 11:00 72 16 117/64 94 03/04/21 10:49 62 15 91 03/04/21 10:43 67 19 147/80 H 94 03/04/21 10:30 68 20 128/80 94 03/04/21 10:20 20 96 03/04/21 09:33 37.0 C 67 20 155/71 H 98 Laboratory Results Cardiac Enzymes 03/04/21 03/04/21 Range/Units 10:10 16:55 AST 13 L (15-37) U/L Troponin I < 0.015 < 0.015 (0-0.045) ng/ml Coagulation 03/04/21 Range/Units 10:10 PT 10.3 (9.0-12.0) Seconds APTT 24.8 (21.0-31.0) Seconds CBC 03/04/21 Range/Units 10:10 WBC 5.12 (4.8-10.8) K/uL RBC 5.22 (4.7-6.1) M/uL Hgb 17.8 (14.0-18.0) g/dL Hct 50.7 (42-52) % Plt Count 149 (130-400) K/uL Neut # (Auto) 3.92 (1.4-6.5) K/uL Lymph # (Auto) 0.53 L (1.2-3.4) K/uL [place] # (Auto) 0.60 H (0.11-0.59) K/uL Eos # (Auto) 0.03 (0-0.5) K/uL Baso # (Auto) 0.03 (0-0.2) K/uL Comprehensive Metabolic Panel 03/04/21 Range/Units 10:10 Sodium 139 (136-145) mmol/L Potassium 4.3 (3.5-5.1) mmol/L Chloride 106 (98-107) mmol/L Carbon Dioxide 26 (21-32) mmol/L BUN 17 (7-18) mg/dl Creatinine 1.19 (0.6-1.4) mg/dl Glucose 137 H (70-99) mg/dl Calcium 9.8 (8.5-10.1) mg/dl AST 13 L (15-37) U/L ALT 34 (12-78) U/L Alkaline Phosphatase 70 (45-117) U/L Total Protein 6.8 (6.4-8.2) gm/dl Albumin 3.8 (3.4-5.0) gm/dl Intake and Output 03/04/21 03/04/21 03/04/21 06:59 14:59 22:59 Other: Weight 94.2 kg 94.2 kg Weight Measurement Method Chair Scale Chair Scale Patient Weight 03/05/21 06:59 Weight 94.2 kg (1) Chest pain Chest pain type: precordial pain Qualified Code(s): R07.2 - Precordial pain
[2021-03-04] MEDS ORDERED: TAMSULOSIN HCL 0.4 MG CAP PO SCH (21:00)
[2021-03-04] MEDS ORDERED: HYDROmorphone INJ 0.5 MG/0.5 ML SYR IV STA (21:14)
[2021-03-04] MEDS: METOPROLOL TARTRATE 25 MG TAB PO SCH (21:34)
[2021-03-04] MEDS: INSULIN ASPART 100 UNITS/ML 3 ML PEN SC SCH (21:35)
[2021-03-05 01:59] LABS: Mean Corpuscular Hemoglobin 34.3 pg (25-34); Mean Corpuscular Hgb Conc 35.4 g/dL (32-36); Mean Corpuscular Volume 96.8 fL (80-100); Mean Platelet Volume 10.2 fL (7.4-10.4); Platelet Count 138 K/uL (130-400); RDW Coefficient of Variation 12.8 % (11.5-14.5); Red Blood Count 4.96 M/uL (4.7-6.1); White Blood Count 4.43 K/uL (4.8-10.8)
[2021-03-05 04:29] LABS: Calcium 9.1 mg/dl (8.5-10.1); Creatinine Clr Calc Pharmacy 62.5 ml/min; Est GFR (African American) 70.3 ml/min; Est GFR (Non-African American) 60.7 ml/min; Magnesium 2.2 mg/dl (1.8-2.4); Potassium 3.9 mmol/L (3.5-5.1)
[2021-03-05 04:30] LABS: Phosphorus 3.4 mg/dl (2.5-4.9)
[2021-03-05] MEDS ORDERED: REGADENOSON 0.4 MG/5 ML SYR IV ONE (07:50)
[2021-03-05] MEDS ORDERED: ISOSORBIDE MONO EXTENDED REL 60 MG TABCR PO SCH (09:00)
[2021-03-05] MEDS ORDERED: CLOPIDOGREL BISULFATE 75 MG TAB PO SCH (09:00)
[2021-03-05] MEDS ORDERED: LOSARTAN POTASSIUM 50 MG TAB PO SCH (09:00)
[2021-03-05] MEDS ORDERED: ATORVASTATIN 40 MG TAB PO SCH (09:00)
[2021-03-05] MEDS ORDERED: PANTOprazole 40 MG TAB PO SCH (09:00)
[2021-03-05] MEDS ORDERED: ASPIRIN 81 MG ECTAB PO SCH (09:00)
--- NOTE | 2021-03-05 09:05 | Electrocardiogram Report ---
Test Reason : Blood Pressure : / mmHG Vent. Rate : 062 BPM Atrial Rate : 062 BPM P-R Int : 162 ms QRS Dur : 094 ms QT Int : 400 ms P-R-T Axes : 053 043 094 degrees QTc Int : 406 ms Normal sinus rhythm Poor R wave progression, consider anterior [place] vs. lead placement vs. LVH Nonspecific ST abnormality Abnormal ECG When compared with ECG of 04-MAR-2021 21:26, (unconfirmed) No significant change was found Confirmed by Lucas Neff ([id number]) on 03/05/2021 9:04:59 AM Referred By: REFERRED SELF Confirmed By:Erik Neff
--- NOTE | 2021-03-05 09:06 | Electrocardiogram Report ---
Test Reason : Blood Pressure : / mmHG Vent. Rate : 062 BPM Atrial Rate : 062 BPM P-R Int : 158 ms QRS Dur : 088 ms QT Int : 398 ms P-R-T Axes : 050 019 085 degrees QTc Int : 403 ms Normal sinus rhythm Nonspecific ST abnormality Abnormal ECG Confirmed by Lucas Neff ([id number]) on 03/05/2021 9:06:08 AM Referred By: REFERRED SELF Confirmed By:Erik Neff
[2021-03-05] MEDS: METOPROLOL TARTRATE 25 MG TAB PO SCH (09:37)
[2021-03-05] MEDS: INSULIN ASPART 100 UNITS/ML 3 ML PEN SC SCH ×2 (09:37→13:29)
[2021-03-05 09:45] VITALS: TEMP 97.9
--- NOTE | 2021-03-05 11:18 | Cardiology Progress Note ---
Date of Service March 05, 2021 Assessment & Plan (1) Chest pain: Plan: Clinically, patient's symptoms are felt to be atypical for angina. They lasted hours, with undetectable troponin I levels x3. EKG performed yesterday and again today, as well as the one recently performed as an outpatient without acute changes to suggest ischemia. There are chronic lateral repolarization changes with low amplitude T wave inversions, consistent with his previous DC in the diagonal territory. I counseled the patient that previously, he had non-ST segment elevation myocardial infarction's back in April,, and again in July,, in addition to symptoms of chest discomfort, his EKG tracings were abnormal, and his troponin levels were elevated. In contrast, the EKG and troponin levels are reassuring at present. The tentative plan was for him to undergo a nuclear stress test today, he had the resting images, but could not complete the stress test due to concerns of claustrophobia. After further discussion, plan to proceed instead with and exercise stress echo. Admission and Anticipated Discharge Date Admission Date: March 04, 2021 Subjective Patient seen in PCU room 229. No chest pain this am. Troponing negative x 3, EKG without new changes to suggest ischemia. Review of Systems Review of Systems: All systems reviewed & are unremarkable except as noted in HPI & below Physical Exam Physical Exam: Temp Pulse Resp BP Pulse Ox 36.6 C 58 L 14 144/77 H 95 03/05/21 09:44 03/05/21 09:44 03/05/21 09:44 03/05/21 09:44 03/05/21 09:44 Respiratory: normal respiratory effort, lungs clear to auscultation Cardiovascular: RRR, no murmur, no edema Chest (Breasts): Additional Comments: well healed midline sternotomy incision Neurologic: PERRL, EOMI, accommodation nl, no face palsy, no dysarthria Results & Data ([facility]) Vital Signs (Past 12 Hours) Vital Signs Temp Pulse Pulse Pulse Resp BP Pulse Ox 03/05/21 09:44 36.6 C 58 L 14 144/77 H 95 03/05/21 07:50 63 03/05/21 03:04 36.8 C 60 16 116/72 92 03/04/21 23:52 36.8 C 61 20 137/77 92 Laboratory Results Cardiac Enzymes 03/04/21 03/04/21 03/04/21 Range/Units 10:10 16:55 20:19 AST 13 L (15-37) U/L Troponin I < 0.015 < 0.015 < 0.015 (0-0.045) ng/ml 03/05/21 Range/Units 01:42 AST (15-37) U/L Troponin I < 0.015 (0-0.045) ng/ml CBC 03/05/21 Range/Units 01:42 WBC 4.43 L (4.8-10.8) K/uL RBC 4.96 (4.7-6.1) M/uL Hgb 17.0 (14.0-18.0) g/dL Hct 48.0 (42-52) % Plt Count 138 (130-400) K/uL Comprehensive Metabolic Panel 03/04/21 03/05/21 Range/Units 10:10 01:42 Sodium 139 137 (136-145) mmol/L Potassium 4.3 3.9 (3.5-5.1) mmol/L Chloride 106 107 (98-107) mmol/L Carbon Dioxide 26 25 (21-32) mmol/L BUN 17 16 (7-18) mg/dl Creatinine 1.19 1.19 (0.6-1.4) mg/dl Glucose 137 H 129 H (70-99) mg/dl Calcium 9.8 9.1 (8.5-10.1) mg/dl AST 13 L (15-37) U/L ALT 34 (12-78) U/L Alkaline Phosphatase 70 (45-117) U/L Total Protein 6.8 (6.4-8.2) gm/dl Albumin 3.8 (3.4-5.0) gm/dl Intake and Output 03/04/21 03/05/21 03/05/21 22:59 06:59 14:59 Intake Total 200 / 350 150 / 350 Output Total 125 / 625 500 / 625 Balance 75 / -275 -350 / -275 Intake: Oral 200 / 350 150 / 350 Output: Urine 125 / 625 500 / 625 Other: Other Intake Source NPO Weight 94.2 kg 93.6 kg Weight Measurement Method Chair Scale (1) Chest pain Chest pain type: precordial pain Qualified Code(s): R07.2 - Precordial pain
[2021-03-05 11:40] VITALS: BP 113/70; O2SAT 92
--- NOTE | 2021-03-05 13:53 | Communication Note ---
Date of Service: March 05, 2021 Stress echo negative for ischemia. Presenting symptom of chest pain NOT reproduced. Stable for discharge on prior to hospital medication. If he has recurrent similar discomfort, future considerations include adding duloxetine, daily. However, he would need to stop taking tramadol due to concerns of interaction. Pt favors continuing same mediations without change. Cancel nuclear stress scheduled as outpatient.
--- NOTE | 2021-03-05 13:58 | Myocardial Perfusion Study ---
Date of Service March 05, 2021 Patient Name: Tal Diaz Date of : 1950 Indication for study: Chest pain The patient was referred for a [facility] myocardial perfusion imaging study. For the rest portion of the study 10 mCi of technetium 99m Cardiolite was injected intravenously at 7:45 AM on 03/05/2021. 1 hour following the injection imaging of the heart was performed in multiple projections. Resting perfusion images reveal homogenous perfusion to the myocardium. There is subtle photopenia of the inferior wall. However per review of the resting images, this appears to be due to attenuation artifact. No gated images are available for review. The patient was unable to complete the remaining portion of the study due to claustrophobia. He was able to complete the resting images, but states that he did not think that he would be able to sit under the camera again. Therefore the stress portion of the test was canceled, and he did not have any stress perfusion images. The study is equivocal for any clinical decision making.
--- NOTE | 2021-03-05 14:14 | Hospitalist Progress Note ---
Date of Service March 05, 2021 Assessment & Plan (1) Chest pain: (2) CAD (coronary artery disease): Plan: -Admitted to telemetry -Patient presenting from home with reports of worsening left-sided chest pain. Was evaluated in the cardiology clinic on 02/28 and scheduled for stress test on 03/11. Has been ongoing for the past 1 month however acutely worsened this morning. Pain not relieved with 3 sublingual nitroglycerin at home, patient then presented to the ED for further evaluation. -CAD s/p CABG x 3 04/11/20 with subsequent acute graft occlusion of SVG to diagonal on 04/18/2020 and repeat occlusion of the same vessel in July 2020 -Troponin x3 negative, EKG without acute ST changes -Cardiology consulted, Dr. Mitchell -Continue ASA, Plavix, statin, beta-reji, nitrate -Stress echo negative for ischemia. Presenting symptom of chest pain NOT reproduced. Stable for discharge on prior to hospital medication. (3) Type 2 diabetes mellitus: Plan: -Hgb A1c 7.0 02/28/2021 -Patient currently not on medical therapy, consider starting Metformin at discharge/ follow up as outpt -NovoLog per protocol while hospitalized (4) HTN (hypertension): Plan: -BP controlled, continue isosorbide, losartan, metoprolol (5) DVT prophylaxis: Plan: -SQ Lovenox Admission and Anticipated Discharge Date Admission Date: March 04, 2021 Subjective Patient seen in follow up of chest pain No chest pain this morning. Underwent stress test with cardiology Troponin x3 negative, EKG without new changes to suggest ischemia. Currently feeling well, denies any CP, shortness of breath, dizziness, lightheadedness Pt's at the bedside Review of Systems Review of Systems: All systems reviewed & are unremarkable except as noted in Subjective Physical Exam Physical Exam: Constitutional:L WD/WN, male in NAD Eyes: PERRL, EOMI, conju nctivae normal, an icteric sclerae ENMT: external ear and n ose normal, oropha rynx normal Respiratory: normal respiratory effort, lungs eitan ar to auscultation Cardiovascular:L Rate/Rhythm: regul ar rate and regula r rhythm Vessels: normal peripheral pulses Extremiti es: no edema Chest (Breasts): Additional Comment s: Chest pain not reproducible on ex am Gastrointestinal ( Abdomen): normal bowel sound s, soft, nontender Musculoskeletal: extremities motor strength 5/5 Skin: no rashes, warm an d dry Neurologic: PERRL, EOMI, no fa ce palsy, no dysar thria BPsychiatric: A+Ox3, euthymic af fect Results & Data Results & Data ([facility]) Vital Signs (Past 12 Hours) Vital Signs Temp Pulse Pulse Resp BP Pulse Ox 03/05/21 11:39 36.6 C 55 L 18 113/70 92 03/05/21 09:44 36.6 C 58 L 14 144/77 H 95 03/05/21 07:50 63 03/05/21 03:04 36.8 C 60 16 116/72 92 Laboratory Results 03/05/21 03/05/21 03/05/21 Range/Units 11:45 07:21 01:42 WBC 4.43 L (4.8-10.8) K/uL RBC 4.96 (4.7-6.1) M/uL Hgb 17.0 (14.0-18.0) g/dL Hct 48.0 (42-52) % MCV 96.8 (80-100) fL MCH 34.3 H (25-34) pg MCHC 35.4 (32-36) g/dL RDW Std Deviation 45.0 (36.4-46.3) fL RDW Coeff of Cathie 12.8 (11.5-14.5) % Plt Count 138 (130-400) K/uL MPV 10.2 (7.4-10.4) fL Sodium (136-145) mmol/L Potassium (3.5-5.1) mmol/L Chloride (98-107) mmol/L Carbon Dioxide (21-32) mmol/L Anion Gap (3-11) BUN (7-18) mg/dl Creatinine (0.6-1.4) mg/dl Est Cr Clr Drug Dosing ml/min Est GFR ( Amer) ml/min Est GFR (Non-Af Amer) ml/min BUN/Creatinine Ratio (10-20) Glucose (70-99) mg/dl POC Glucose 139 H 120 H (70-99) mg/dl Calcium (8.5-10.1) mg/dl Phosphorus (2.5-4.9) mg/dl Magnesium (1.8-2.4) mg/dl Troponin I (0-0.045) ng/ml 03/05/21 03/05/21 03/04/21 Range/Units 01:42 01:42 20:35 WBC (4.8-10.8) K/uL RBC (4.7-6.1) M/uL Hgb (14.0-18.0) g/dL Hct (42-52) % MCV (80-100) fL MCH (25-34) pg MCHC (32-36) g/dL RDW Std Deviation (36.4-46.3) fL RDW Coeff of Cathie (11.5-14.5) % Plt Count (130-400) K/uL MPV (7.4-10.4) fL Sodium 137 (136-145) mmol/L Potassium 3.9 (3.5-5.1) mmol/L Chloride 107 (98-107) mmol/L Carbon Dioxide 25 (21-32) mmol/L Anion Gap 5.0 (3-11) BUN 16 (7-18) mg/dl Creatinine 1.19 (0.6-1.4) mg/dl Est Cr Clr Drug Dosing 62.5 ml/min Est GFR ( Amer) 70.3 ml/min Est GFR (Non-Af Amer) 60.7 ml/min BUN/Creatinine Ratio 13.0 (10-20) Glucose 129 H (70-99) mg/dl POC Glucose 100 H (70-99) mg/dl Calcium 9.1 (8.5-10.1) mg/dl Phosphorus 3.4 (2.5-4.9) mg/dl Magnesium 2.2 (1.8-2.4) mg/dl Troponin I < 0.015 (0-0.045) ng/ml 03/04/21 03/04/21 Range/Units 20:19 16:55 WBC (4.8-10.8) K/uL RBC (4.7-6.1) M/uL Hgb (14.0-18.0) g/dL Hct (42-52) % MCV (80-100) fL MCH (25-34) pg MCHC (32-36) g/dL RDW Std Deviation (36.4-46.3) fL RDW Coeff of Cathie (11.5-14.5) % Plt Count (130-400) K/uL MPV (7.4-10.4) fL Sodium (136-145) mmol/L Potassium (3.5-5.1) mmol/L Chloride (98-107) mmol/L Carbon Dioxide (21-32) mmol/L Anion Gap (3-11) BUN (7-18) mg/dl Creatinine (0.6-1.4) mg/dl Est Cr Clr Drug Dosing ml/min Est GFR ( Amer) ml/min Est GFR (Non-Af Amer) ml/min BUN/Creatinine Ratio (10-20) Glucose (70-99) mg/dl POC Glucose (70-99) mg/dl Calcium (8.5-10.1) mg/dl Phosphorus (2.5-4.9) mg/dl Magnesium (1.8-2.4) mg/dl Troponin I < 0.015 < 0.015 (0-0.045) ng/ml Medications Administered Current Inpatient Medications Acetaminophen (Acetaminophen 325 Mg Tab) 650 mg PO Q4H PRN PRN Reason: Pain or Fever Stop: 04/03/21 19:36 Aspirin (Aspirin 81 Mg Ectab) 81 mg PO QAM PARIS Stop: 04/04/21 08:59 Last Admin: 03/05/21 09:38 Dose: 81 mg Documented by: Atorvastatin Calcium (Atorvastatin 40 Mg Tab) 40 mg PO DAILY PARIS Stop: 04/04/21 08:59 Last Admin: 03/05/21 09:38 Dose: 40 mg Documented by: Clopidogrel Bisulfate (Clopidogrel Bisulfate 75 Mg Tab) 75 mg PO DAILY [place] Stop: 04/04/21 08:59 Last Admin: 03/05/21 09:38 Dose: 75 mg Documented by: Dextrose (Dextrose 50% 50 Ml Syringe) 25 - 50 ml IV UD PRN; Protocol PRN Reason: Hypoglycemia Protocol Stop: 04/03/21 19:36 Enoxaparin Sodium (Enoxaparin Inj 40 Mg/0.4 Ml Syr) 40 mg SQ Q24H PARIS Stop: 04/03/21 19:59 Last Admin: 03/04/21 21:57 Dose: 40 mg Documented by: Glucagon (Glucagon For Inj 1 Mg Vial) 1 mg SQ UD PRN; Protocol PRN Reason: Hypoglycemia Protocol Stop: 04/03/21 19:36 Glucose (Glucose 10 Tabs/Tube) 4 - 8 tabs PO UD PRN; Protocol PRN Reason: Hypoglycemia Protocol Stop: 04/03/21 19:36 Glucose (Glucose 40% Gel 15 Gm Tube) 15 - 30 gm PO UD PRN; Protocol PRN Reason: Hypoglycemia Protocol Stop: 04/03/21 19:36 Insulin Aspart (Insulin Aspart 100 Units/Ml 3 Ml Pen) 0 units SC ACHS PARIS Stop: 04/03/21 20:59 Last Admin: 03/05/21 13:29 Dose: Not Given Documented by: Isosorbide Mononitrate (Isosorbide Glynn Extended Rel 60 Mg Tabcr) 60 mg PO DAILY [place] Stop: 04/04/21 08:59 Last Admin: 03/05/21 09:37 Dose: 60 mg Documented by: Losartan Potassium (Losartan Potassium 50 Mg Tab) 50 mg PO DAILY [place] Stop: 04/04/21 08:59 Last Admin: 03/05/21 09:37 Dose: 50 mg Documented by: Metoprolol Tartrate (Metoprolol Tartrate 25 Mg Tab) 25 mg PO BID PARIS Stop: 04/03/21 20:59 Last Admin: 03/05/21 09:37 Dose: 25 mg Documented by: Miscellaneous (Carbohydrates For Hypoglycemia ) 15 - 30 gm PO UD PRN PRN Reason: Hypoglycemia Protocol Stop: 04/03/21 19:36 Morphine Sulfate (Morphine Sulfate 4 Mg/Ml 1 Ml Carp\Vial) 3 mg IV Q4H PRN PRN Reason: Pain Stop: 03/18/21 19:48 Last Admin: 03/04/21 20:15 Dose: 3 mg Documented by: Nitroglycerin (Nitroglycerin Sl 0.4 Mg/Tab Tab) 0.4 mg SL UD PRN PRN Reason: Chest Pain Stop: 04/03/21 19:36 Pantoprazole Sodium (Pantoprazole 40 Mg Tab) 40 mg PO QAM [place] Stop: 04/04/21 08:59 Last Admin: 03/05/21 09:38 Dose: 40 mg Documented by: Tamsulosin HCl (Tamsulosin Hcl 0.4 Mg Cap) 0.8 mg PO HS [place]IS Stop: 04/03/21 20:59 Last Admin: 03/04/21 21:34 Dose: 0.8 mg Documented by: Tramadol HCl (Tramadol Hcl 50 Mg Tablet) 50 mg PO Q6 PRN PRN Reason: pain Stop: 04/03/21 19:36 (1) Chest pain Chest pain type: precordial pain Qualified Code(s): R07.2 - Precordial pain (2) Type 2 diabetes mellitus Diabetes mellitus usp insulin use: without termite exterminator helper use Diabetes mellitus complication status: without complication Qualified Code(s): E11.9 - Type 2 diabetes mellitus without complications (3) HTN (hypertension) Hypertension type: essential hypertension Qualified Code(s): I10 - Essential (primary) hypertension
[2021-03-05 14:23] VITALS: PULSE 61
--- NOTE | 2021-03-12 19:55 | Discharge Summary ---
Date of Service March 05, 2021 Admission HPI Per Admitting Provider 70-year-old male with PMH CAD s/p CABG x 3 04/11/20 with subsequent acute graft occlusion of SVG to diagonal on 04/18/2020 and repeat occlusion of the same vessel in July 2020, s/p left carotid endarterectomy, DM type II, history of prostate cancer, aortic valve stenosis s/p bioprosthetic aortic valve replacement 04/2020, BPH, and other problems listed below who presents to the ED for evaluation of chest pain. Patient has been having episodes of left-sided chest pain for the past 1 month. Reports pain is located in his left axilla and radiates into the left side of his chest. No specific causative or alleviating factors for this pain. Patient reports that he is fairly active and does outside yard work, reports the pain typically does not happen when he is exerting himself. He typically will take Tylenol or sublingual nitroglycerin with relief of the pain.Was seen in the cardiology clinic on 02/28/2021, EKG was unremarkable and patient was scheduled for nuclear stress test on 03/11/2021. This morning, patient reports acute worsening in his pain. He took 3 sublingual nitroglycerin without any relief and then presented to the ED for further evaluation. Patient denies associated shortness of breath, diaphoresis, nausea, lightheadedness. Reports pain at its worst was a #10/10, SL nitro in the ED did not provide any relief, morphine 2 mg IV mildly improve the pain. Patient denies any other recent illnesses, fevers, chills. No abdominal pain, vomiting, diarrhea. Denies urinary symptoms. In the ED, initial troponin is negative and EKG does not show any acute ST changes. Patient is hemodynamically stable. Admission Exam Per Admitting Provider Constitutional: WD/WN, vitals as above Eyes: PERRL, conjunctivae normal, anicteric sclerae ENMT: external ear and nose normal, oropharynx normal Respiratory: normal respiratory effort, lungs clear to auscultation Cardiovascular: Rate/Rhythm: regular rate and regular rhythm Vessels: normal peripheral pulses Extremities: no edema Chest (Breasts): Additional Comments: Chest pain not reproducible on exam Gastrointestinal (Abdomen): normal bowel sounds, soft, nontender, no hepatosplenomegaly Musculoskeletal: no cyanosis or clubbing, extremities motor strength 5/5 Skin: no rashes, warm and dry Neurologic: PERRL, EOMI, accommodation nl, no face palsy, no dysarthria Psychiatric: A+Ox3, euthymic affect Principal Diagnosis Chest pain, atypical for angina Coronary artery disease Discharge Exam Constitutional: WD/WN, male in NAD Eyes: PERRL, EOMI, conjunctivae normal, anicteric sclerae ENMT: external ear and nose normal, oropharynx normal Respiratory: normal respiratory effort, lungs clear to auscultation Cardiovascular: Rate/Rhythm: regular rate and regular rhythm Vessels: normal peripheral pulses Extremities: no edema Chest (Breasts): Additional Comments: Chest pain not reproducible on exam Gastrointestinal (Abdomen): normal bowel sounds, soft, nontender Musculoskeletal: extremities motor strength 5/5 Skin: no rashes, warm and dry Neurologic: PERRL, EOMI, no face palsy, no dysarthria Psychiatric: A+Ox3, euthymic affect Discharge Data Allergies Allergy/AdvReac Type Severity Reaction Status Date / Time cat dander Allergy Mild hives Verified 03/04/21 10:33 Penicillins Allergy Unknown . Verified 03/04/21 10:33 Consultations 03/04/21 11:36 ED Decision to Admit Stat 03/04/21 12:24 Consult Cardiology Routine Hospital Course (1) Chest pain: (2) CAD (coronary artery disease): -Admitted to telemetry -Patient presenting from home with reports of worsening left-sided chest pain. Was evaluated in the cardiology clinic on 02/28 and scheduled for stress test on 03/11. Has been ongoing for the past 1 month however acutely worsened this morning. Pain not relieved with 3 sublingual nitroglycerin at home, patient then presented to the ED for further evaluation. -CAD s/p CABG x 3 04/11/20 with subsequent acute graft occlusion of SVG to diagonal on 04/18/2020 and repeat occlusion of the same vessel in July 2020 -Troponin x3 negative, EKG without acute ST changes -Cardiology consulted, Dr. Mitchell -Continue ASA, Plavix, statin, beta-reji, nitrate -Stress echo negative for ischemia. Presenting symptom of chest pain NOT reproduced. Stable for discharge on prior to hospital medication. (3) Type 2 diabetes mellitus: -Hgb A1c 7.0 02/28/2021 -Patient currently not on medical therapy, consider starting Metformin at discharge/ follow up as outpt -NovoLog per protocol while hospitalized (4) HTN (hypertension): -BP controlled, continue isosorbide, losartan, metoprolol (5) DVT prophylaxis: -SQ Lovenox Total Time Total Time Spent Total Time Spent (In Minutes): 35 Discharge Plan Discharge Items Patient Disposition: Home - Self-Care Reason For Visit: CHEST PAIN Discharge Diagnosis: Chest pain, atypical for angina Coronary artery disease Activity: Per Instructions section Non-emergency contact: Primary Care Provider and [employer] Specialist Call non-emergency contact if: you have any medication questions and your symptoms worsen Follow-up/Referrals: Melvin Pickard MD [Primary Care Provider] - (Date & Time 03/08/2021 12:00 PM Provider Melvin Pickard MD Department General Internal Medicine [facility] ) Diet: Carb Consistent or DM2 and Heart Healthy Addtl Attending Provider Instructions: Follow-up with your primary care doctor, the appointment was scheduled for you for March 08. Follow-up with your svp chief marketing officer, the appointment scheduled for you for April 04. Please contact your svp chief marketing officer if you have any questions about your current heart medications. There were no medication changes made during your hospital stay. Pending Studies at Discharge: No Stand-Alone Forms: My [facility] [place], Smoking Cessation Medications and DC Order Prescriptions: Continued tamsulosin [Flomax] 0.4 mg capsule 0.8 mg PO HS RF: 0 isosorbide mononitrate 60 mg tablet extended release 24 hr 60 mg PO DAILY RF: 0 aspirin 81 mg Tablet,Delayed Release (Dr/Ec) 81 mg PO QAM Qty: 30 RF: 0 nitroglycerin [Nitrostat] 0.4 mg Tablet, Sublingual 0.4 mg sublingual PRN Qty: 25 RF: 1 metoprolol tartrate 25 mg Tablet 25 mg PO BID Qty: 60 RF: 0 tramadol 50 mg tablet 50 mg PO Q6 PRN (Reason: pain) RF: 0 atorvastatin 40 mg Tablet 40 mg PO DAILY RF: 0 clopidogrel [Plavix] 75 mg tablet 75 mg PO DAILY Qty: 30 RF: 0 losartan 50 mg tablet 50 mg PO DAILY RF: 0 pantoprazole 40 mg tablet,delayed release (DR/EC) 40 mg PO QAM RF: 0 Discharge Orders: Discharge Order (Routine); Ordered 03/05/21 Ordered By: Manish Acharya Admission Data Admit Date/Time: 03/04/21 12:25 Attending Provider: Manish Acharya Admit Provider: Manish Acharya Primary Care Provider: Melvin Pickard Other Providers: Manish Acharya ; Adrian Mitchell Other Interventions: Discharge Summary Assessment (RN) Last Done: 03/05/21 14:22
== END 2021-03-05 14:52 | disposition home or self-care (01) ==
LOC: ED 09:32 → EDINP 09:32 → 2S 15:44